=== PATIENT | male | born 1960 | race Caucasian/White ===

== ENCOUNTER 2019-10-05 05:37 | Inpatient (IN) ==
[2019-10-05] MEDS ORDERED: NS 1,000 ML IV ONE ×2 (05:54→07:50)
[2019-10-05] MEDS ORDERED: NARCAN IV ONE ×2 (05:54→07:18)
[2019-10-05 06:04] LABS: BASO# 0.08 X1000 (0.0-0.2); BASO% 0.4 % (0.0-0.8); EOS# 0.06 X1000 (0.0-0.7); EOS% 0.3 % (0.0-10.0); HEMATOCRIT 40.3 % (42.0-52.0); HEMOGLOBIN 13.3 g/dL (14.0-18.0); IMM GRAN% 3.1 % (0.0-0.5); LYMPH# 2.91 X1000 (1.2-3.4); LYMPH% 13.1 % (20.5-51.1); MCH 32.7 PG (27-31); MPV 10.1 FL (7.4-10.4); NEUT# 16.52 X1000 (1.4-6.5); NEUT% 74.1 % (42.2-75.2); PLT 198 X1000 (130-400); RBC 4.07 XMIL (4.7-6.1); RDW 13.3 % (11.5-14.5); WBC 22.27 X1000 (4.8-10.8)
--- NOTE | 2019-10-05 06:15 | PROVIDER DOCUMENTATION ---
HPI-General Adult - General Chief Complaint: Altered Mental Status Stated Complaint: unresponsive Time Seen by Provider: 10/05/19 05:44 Source: patient, EMS Allergies/Adverse Reactions: Patient Allergies Allergy/AdvReac Type Severity Reaction Status Date / Time codeine [Codeine] Allergy Intermediate RASH Verified 09/16/18 17:48 Penicillins Allergy Intermediate RASH Verified 09/16/18 17:48 ketorolac tromethamine * Allergy ABDOMINAL Verified 09/16/18 17:48 [From Toradol] PAIN meloxicam [From Mobic] Allergy NAUSEA/VOMI Verified 09/16/18 17:48 TING Home Medications: Home Medication List Medication Instructions Recorded Confirmed Last Taken Type Albuterol [Albuterol Neb] 2.5 mg INH Q4H PRN PRN 12/11/14 09/27/15 09/26/15 History Albuterol Sulfate [Proair Hfa] 8.5 gm IH PRN PRN 04/06/15 09/27/15 09/26/15 History Gabapentin 300 mg PO TID 04/06/15 09/27/15 09/26/15 History Ipratropium/Albuterol Sulfate 4 gm IH PRN PRN 04/06/15 09/27/15 09/26/15 History [Combivent Respimat 20-100 Mcg] Prednisone 10 mg PO DAILY 04/06/15 09/27/15 09/26/15 History Amitriptyline [Elavil] 10 mg PO HS 09/27/15 09/27/15 09/25/15 History Cefprozil [Cefzil] 500 mg PO BID 09/27/15 09/27/15 09/26/15 History D-Methorphan/P-Epd/Bpm [Bromfed Dm 2 tsp PO Q4H PRN PRN 09/27/15 09/27/15 09/26/15 History Liquid] Diazepam [Valium] 10 mg PO TID 09/27/15 09/27/15 09/26/15 History Hydrocodone/Acetaminophen [[place] 10 mg PO 4XDAY PRN PRN 09/27/15 09/27/15 09/26/15 History 10-325 Tablet] Azithromycin [Zithromax Z-Tom] 250 mg PO DIRECTED #1 pkg 09/16/18 Unknown Rx Promethazine/Dextromethorphan 1 tsp PO Q6H PRN PRN #1 syrup 09/16/18 Unknown Rx [Promethazine-Dm Syrup] - History of Present Illness -Gen Adult Nature of Presenting Problems: Pt presents s/p accidental overdose, pt takes pain medication at home regularly, pt found at home by family unresponsive, upon EMS arrival pt had low O2 sat that responded to NRB, pt is not speaking or answering questions at this time, arousable to pain, not opening eyes, lying in bed in no acute distress. Location of Pain/Injury: reports: none Pain Radiation: reports: no radiation Quality of Pain: reports: none Onset/Duration: reports: 1-3 hours ago Timing: reports: still present Context/Activities at Onset: reports: none Modifying Factors: improves with: nothing Associated Symptoms: reports: denies symptoms Similar Symptoms Previously?: No Recently seen or treated by another doctor?: No Review of Systems - Adult - REVIEW OF SYSTEMS - ADULT ROS:: unobtainable per condition Constitutional: reports: no symptoms reported Past History - Adult - PAST MEDICAL HISTORY-ADULT Review of Records: reports: Old Records Reviewed, Nursing Assessment Review, Medications Reviewed, Social history reviewed & non-contributory. Major Childhood Illnesses: reports: denies history Cardiovascular: reports: CHF Respiratory: reports: asthma, COPD Gastrointestinal: reports: hepatitis (Hep C) Genitourinary: reports: denies history Musculoskeletal: reports: chronic pain Neurological: reports: denies history, Seizures/Epilepsy (as a child) Psychiatric: reports: anxiety Endocrine/Immune: reports: denies history Other Conditions: reports: denies history - PRIOR SURGERIES/PROCEDURES Surgical/Procedure History: reports: cholecystectomy, other (Cyst on the ariadna lbone ) - IMMUNIZATION STATUS Childhood Immunizations: See Nurse Assessment Flu Vaccine: See Nurse Assessment Physical Exam-General - PHYSICAL EXAM-ADULT Initial Vital Signs Reviewed: Yes - CONSTITUTIONAL General Appearance: appears well - EYES Eyes: PERRL/EOMI - HEAD, EARS, NOSE, MOUTH & THROAT HENMT: normocephalic/atraumatic - NECK Neck: normal inspection - RESPIRATORY Respiratory: lungs clear, no respiratory distress, no accessory muscle use - CARDIOVASCULAR Cardiovascular: regular rate, rhythm - GASTROINTESTINAL (ABDOMEN) Abdominal Exam: normal bowel sounds, non tender, soft - LYMPHATIC Lymphatic: no adenopathy - MUSCULOSKELETAL Back Exam: normal inspection Extremity: normal range of motion - SKIN Integumentary: normal color - NEUROLOGIC Neurologic: grossly normal - PSYCHIATRIC Psych/Mental Status: normal mood/affect Progress - PLAN OF CARE/RESULTS Progress/Plan/Lab Results: Vital Signs - 8 hr 10/05/19 06:00 Pulse Rate 100 H Respiratory Rate 12 Blood Pressure 121/82 O2 Sat by Pulse Oximetry 97 Laboratory Results - last 24 hr 10/05/19 05:50 WBC 22.27 H RBC 4.07 L Hgb 13.3 L Hct 40.3 L MCV 99.0 MCH 32.7 H MCHC 33.0 RDW Std Deviation 13.3 Plt Count 198 MPV 10.1 Immature Gran % (Auto) 3.1 H Neut % (Auto) 74.1 Lymph % (Auto) 13.1 L Pettis % (Auto) 9.0 Eos % (Auto) 0.3 Baso % (Auto) 0.4 Immature Gran # (Auto) 0.70 H Neut # (Auto) 16.52 H Lymph # (Auto) 2.91 Pettis # (Auto) 2.00 H Eos # (Auto) 0.06 Baso # (Auto) 0.08 Segmented Neutrophils Not Reportable Orders Category Date Time Status Nursing- Obtain EKG ONCE Care 10/05/19 05:54 Active CHEST-1 VIEW [RAD] Stat Exams 10/05/19 05:54 Ordered CBC WITH ELECTRONIC DIFF [HEME] Stat Lab 10/05/19 05:50 Completed COMPREHENSIVE METABOLIC PANEL [CHEM] Stat Lab 10/05/19 05:57 Ordered TROPONIN T Stat Lab 10/05/19 05:57 Ordered URINE DRUG SCREEN Stat Lab 10/05/19 05:54 Uncollected 0.9% Sodium Chloride Inj [Ns] 1,000 ml Med 10/05/19 05:54 Active IV 999 mls/hr Naloxone [Narcan] Med 10/05/19 05:54 Discontinued 2 mg IV NOW ONE EKG [EKG] Stat Ther 10/05/19 05:54 Ordered Patient signed out to me from Dr Valladares pending labs and reeval. patient again with AMS and was difficult to arouse with sternal rub. Given another 2mg of Narcan but no change. WBC showing 22k, K 5.4 and tachycardia. Will start sepsis protocol and given Vanc and Zosyn. CK came back to 16k. Cr elevated to 1.9. Patient in rhabdo. No source for sepsis. Blood cultures pending. CT Head was negative. Patient started to return to baseline mental status and was A&Ox3. Spoke to VITALIY Dawn general education instructor who accepted patient for admission to Dr Garcia. Further orders to be placed by their team. Result Diagrams: 10/05/19 05:50 10/05/19 05:57 - XRAY 1 XRAY Study: Chest (EXAM: CHEST-1 VIEW INDICATION: ams TECHNIQUE: One view COMPARISON: 09/16/2018 FINDINGS: The lungs are grossly clear. There is no discrete pleural fluid collection or pneumothorax. The cardiomediastinal silhouette and central vasculature are grossly unremarkable. IMPRESSION: No evidence of acute pathology by plain radiograph. Electronically signed by Ghassan Mars 10/05/2019 7:26 AM) - CT/MRI 1 CT Study: Head (EXAM: CT HEAD W/O CONTRAST INDICATION: AMS TECHNIQUE: This exam was performed using automated exposure control, adjustment of mA or kV according to patient size, and/or use of iterative reconstruction technique. COMPARISON: 09/26/2015 FINDINGS: There is no definite acute infarct given the limited sensitivity of CT versus MRI. There is no discrete intracranial mass, mass effect, or intracranial hemorrhage. The surrounding soft tissues and bony structures are essentially unremarkable. IMPRESSION: No evidence of acute intracranial pathology. Electronically signed by Ghassan Mars 10/05/2019 9:35 AM) Departure - Departure Date of Disposition Decision: 10/05/19 Time of Disposition Decision: 09:41 DIAGNOSIS: Altered mental status, Rhabdomyolysis, SCARLET (acute kidney injury), Hyperkalemia, Sepsis Disposition: ADMITTED INPATIENT 09 Certified Medical Emergency: Emergent Condition: Stable Referrals and Follow-Ups: Donny Malloy MD [Primary Care Provider] - - Critical Care Note This patient required my direct & personal management of CC.: Yes Total Time (mins): 35 Critical Care Statement: This patient required my direct personal management to treat or rule out processes, the absence of which, could potentiallly result in sudden, clinically significant life or limb threatening deterioration. Attestation - Physician/ JITENDRA Attestation Patient care was provided by Advanced Practice Provider:: No The physician spent face to face time with patient:: Yes Advanced Practice Provider documentation review:: Supervising physician onsite and consulted in the evaluation and care of this patient. The physician did have a face to face encounter with the patient.
[2019-10-05 06:23] LABS: AGAP 11; ALBUMIN 4.1 g/dL (3.5-5.0); ALKALINE PHOSPHATASE 58 U/L (32-122); BUN 23 mg/dL (8-22); CALCIUM 8.7 mg/dL (8.8-10.2); CHLORIDE 99 mmol/L (98-107); COSMO 281; CREATININE 1.9 mg/dL (0.7-1.2); GLUCOSE 99 mg/dL (70-104); GOT 56 U/L (10-34); GPT 23 U/L (10-44); POTASSIUM 5.4 mmol/L (3.5-5.1); SODIUM 139 mmol/L (136-145); TCO2 29 mmol/L (25-35); TOTAL BILIRUBIN 0.19 mg/dL (0.20-1.00); TOTAL PROTEIN 6.2 g/dL (6.3-8.3)
--- NOTE | 2019-10-05 07:28 | Diag Imaging Result Doc PS360 ---
EXAM: CHEST-1 VIEW INDICATION: ams TECHNIQUE: One view COMPARISON: 09/16/2018 FINDINGS: The lungs are grossly clear. There is no discrete pleural fluid collection or pneumothorax. The cardiomediastinal silhouette and central vasculature are grossly unremarkable. IMPRESSION: No evidence of acute pathology by plain radiograph. Electronically signed by Ghassan Mars 10/05/2019 7:26 AM
--- NOTE | 2019-10-05 07:48 | EKG Report ---
Test Performed on : 10/05/2019 06:06:32 AM Test Reason : AMS Blood Pressure : / mmHG Vent. Rate : 102 BPM Atrial Rate : 102 BPM P-R Int : 128 ms QRS Dur : 080 ms QT Int : 340 ms P-R-T Axes : 078 086 072 degrees QTc Int : 443 ms Sinus tachycardia. Otherwise normal ECG When compared with ECG of 19-FEB-2018 08:50, No significant change was found Unconfirmed Result
[2019-10-05] MEDS ORDERED: VANCOMYCIN 1 GM/NS 1 GM/250 ML IVPB IV ONE (07:49)
[2019-10-05] MEDS ORDERED: ZOSYN 3.375 GM in NS 50 ML IV ONE (07:49)
[2019-10-05] MEDS ORDERED: NS 500 ML IV ONE (07:51)
[2019-10-05 09:32] LABS: URINE SOURCE CLEAN CATCH
[2019-10-05 09:35] LABS: BILIRUBIN URINE NEGATIVE (NEGATIVE); BLOOD URINE LARGE (NEGATIVE); COLOR ORANGE; GLUCOSE URINE NEGATIVE (NEGATIVE); KETONE URINE NEGATIVE (NEGATIVE); LEUKOCYTES URINE NEGATIVE (NEGATIVE); NITRITE URINE NEGATIVE (NEGATIVE); PROTEIN URINE 100 mg/dL (NEGATIVE); SP GRAVITY URINE 1.013; TURBIDITY URINE CLEAR (CLEAR); UROBILINOGEN URINE NORMAL (NORMAL)
[2019-10-05 09:38] LABS: UR EPITHELIAL CELLS <10 /HPF (<10); URINE BACTERIA NEGATIVE /HPF; URINE RBC <10 /HPF (<10); URINE WBC <10 /HPF (<10)
--- NOTE | 2019-10-05 09:38 | Diag Imaging Result Doc PS360 ---
EXAM: CT HEAD W/O CONTRAST INDICATION: AMS TECHNIQUE: This exam was performed using automated exposure control, adjustment of mA or kV according to patient size, and/or use of iterative reconstruction technique. COMPARISON: 09/26/2015 FINDINGS: There is no definite acute infarct given the limited sensitivity of CT versus MRI. There is no discrete intracranial mass, mass effect, or intracranial hemorrhage. The surrounding soft tissues and bony structures are essentially unremarkable. IMPRESSION: No evidence of acute intracranial pathology. Electronically signed by Ghassan Mars 10/05/2019 9:35 AM
[2019-10-05 09:54] LABS: CK INDEX 1.5 (0.0-2.5); CK-MB 250.8 ng/mL (0.0-5.0)
[2019-10-05 10:00] LABS: URINE SMALL ROUND CELLS TRANS PRESENT
[2019-10-05 10:11] LABS: INR 2.93; PROTIME 31.4 Seconds (11.0-16.0)
[2019-10-05 10:12] LABS: PTT 33.6 Seconds (22.3-41.8)
[2019-10-05 10:15] LABS: UR AMPHETAMINES QUAL NONE DETECTED (NONE DETECT); UR BARBITUATES QUAL NONE DETECTED (NONE DETECT); UR BENZODIAZEPIN QUAL NONE DETECTED (NONE DETECT); UR CANNABINOIDS QUAL NONE DETECTED (NONE DETECT); UR COCAINE QUAL NONE DETECTED (NONE DETECT); UR METHADONE QUAL NONE DETECTED (NONE DETECT); UR OPIATES QUAL NONE DETECTED (NONE DETECT); UR OXYCODONE QUAL PRESUMPTIVE POSITIVE (NONE DETECT); UR PCP QUAL NONE DETECTED (NONE DETECT)
[2019-10-05] MEDS ORDERED: LOVENOX SUBQ SCH (11:46)
[2019-10-05] MEDS ORDERED: ZOFRAN IV PRN (11:46)
[2019-10-05] MEDS ORDERED: NS 1,000 ML IV SCH (11:46)
[2019-10-05] MEDS ORDERED: VANCOMYCIN IV PER PHARMACY MISC SCH (11:46)
[2019-10-05 11:47] LABS: ALLEN TEST YES; BE -1.3 mmoll (-3.0-3.0); BLOOD TYPE ARTERIAL; HCO3-(ACT) 23.8 mmoll (20.0-26.0); METHB 1.1 % (0.0-1.5); O2(CT) 16.3 mL/dL (15.0-23.0); O2HB 92.6 % (95.0-99.0); PO2(98.6) 72 mmHg (60-100); SAMPLE BLOOD; SAO2 96.9 % (95.0-100.0); THB 12.5 g/dL (11.5-17.4)
[2019-10-05 11:48] LABS: MODALITY CANNULA
[2019-10-05 11:53] LABS: PCO2(98.6) 75 mmHg (35-45); pH(98.6) 7.19 (7.35-7.45)
[2019-10-05] MEDS ORDERED: SODIUM CHLORIDE 0.9% INJ SCH (12:00)
[2019-10-05] MEDS: ZYVOX 600 MG/D5W 600 MG/300 ML IVPB IV SCH (12:30)
[2019-10-05 12:48] LABS: UR CREAT RANDOM 55.3 mg/dL (14-26)
--- NOTE | 2019-10-05 12:49 | HISTORY AND PHYSICAL ---
PRIMARY CARE PHYSICIAN: Dr. Malloy. CHIEF COMPLAINT: Found unresponsive on floor by his parents this morning with a possible drug overdose. When EMS arrived, he had a low O2 saturation. HISTORY OF PRESENTING ILLNESS: This is a 59-year-old male who presents to [facility] via EMS after his parents found him on the floor unresponsive this morning with a low O2 saturation. When he arrived, he was obtunded, was given Narcan, and responded minimally at that time, responded minimally to a sternal rub, received two doses separately of 2 mg of Narcan, responded to deep suctioning, and is now alert and awake and answering questions appropriately, but it has taken him from the time he arrived to the emergency room, which was around 6 a.m. this morning, until about 30 minutes ago for him to wake up, which has put him at about 3 hours in the emergency room. He is now stating that he only took 1 of his [place] 10 this morning for pain, that this was not an intentional attempt to harm himself. His workup did show a white blood cell count of 22.27. His creatine kinase was 16,713, with a CK-MB of 250.80. Plasma lactate was normal at 1.4. CT of the head showed no evidence of acute intracranial pathology. Chest x-ray, 1 view, showed no evidence of acute pathology by plain radiograph. He will now be admitted to the PVC unit for further evaluation and treatment. PAST MEDICAL HISTORY: Anxiety, asthma, COPD, hepatitis C, CHF, epilepsy, and chronic pain. PAST SURGICAL HISTORY: Cholecystectomy. FAMILY HISTORY: Reviewed and noncontributory. SOCIAL HISTORY: Currently lives with his . He is a former smoker. Former drinker, but has been sober for 5 years, and denied any illicit drug use. ALLERGIES: Codeine, penicillin, Ketoralac, and meloxicam. HOME MEDICATIONS: A current list will need to be obtained, reconciled, reviewed, and restarted as appropriate. Will place an order for nursing to update and confirm home medications. IMAGING AND LABORATORY DATA: Laboratory data showed a white blood cell count of 22.27, hemoglobin 13.3, hematocrit 40.3, platelets 198,000. PT and INR of 13.4 and 2.93. Sodium 139, potassium 5.4, chloride 99, CO2 of 29, BUN of 23, creatinine 1.9, glucose 99. Creatine kinase was 16,713, CK-MB of 250.80. Plasma lactate of 1.4. Urinalysis was negative. CT of the head showed no evidence of acute intracranial pathology. Chest x-ray showed no evidence of acute pathology by plain radiograph. This is with a 1-view chest x-ray. EKG showed sinus tachycardia at 102. REVIEW OF SYSTEMS: He denied any fever, chills, blurred vision, dizziness, chest pain, coughing, shortness of breath. Denied any abdominal pain, constipation, diarrhea, burning or hurting with urination. PHYSICAL EXAMINATION: VITAL SIGNS: On arrival, he had a pulse of 100, respirations 12, blood pressure 121/82, saturating 97% on 3 L. GENERAL: This is a 59-year-old male who is lying in the bed and is currently alert and awake and answering questions appropriately. On arrival, he was obtunded, had to be given Narcan twice, sternal rub, and required deep suctioning to stimulate, but currently is alert and awake. HEENT: Normocephalic, atraumatic. Normal ENT inspection. Oropharynx and nares are clear. Eyes: Pupils are equal, round, and reactive to light and accommodation. Extraocular movements are intact. NECK: Normal inspection. Normal range of motion. LUNGS: Clear to auscultation bilaterally with equal lung expansion and chest wall movement. HEART: Regular rate and rhythm. No murmurs, rubs, or gallops. ABDOMEN: Soft, nontender, nondistended. Bowel sounds are present x4 quadrants. MUSCULOSKELETAL: He had 5/5 strength x4 extremities. NEUROLOGICAL: The cranial nerves II through XII appear grossly intact. ASSESSMENT: 1. Possible drug overdose. 2. Unresponsive on arrival, now resolved. 3. Leukocytosis with possible aspiration pneumonia. 4. Acute kidney injury. 5. Rhabdomyolysis. PLAN: He will be admitted to the PVC unit, placed on telemetry, O2 per protocol, placed on Lovenox 40 mg subcutaneously every 24 hours for DVT prophylaxis, normal saline at 150 mL an hour, Zofran 4 mg IV ever 4 hours p.r.n., vancomycin per pharmacy protocol, Zosyn 3.375 grams IV every 6 hours. Recheck CBC, BMP, cardiac profile, and a 2-view chest x-ray in the morning. Will need to update and confirm home medications. Place on healthy heart diet. Further orders after seen by attending. Dictated by ЮЛИЯ De Leon for Janeth Garcia MD cc: ЮЛИЯ De Leon MD Moses Awoniyi, MD I performed a face to face encounter on the patient. I reviewed all labs and imaging on the patient. I agree with the H&P as dictated. [facility]
[2019-10-05] MEDS ORDERED: ZOSYN 3.375 GM in NS 50 ML IV SCH (14:00)
[2019-10-05 15:04] LABS: ACETAMINOPHEN 1.6 ug/mL (10-30); SALICYLATES < 3.00 mg/dL (3-10)
[2019-10-05 15:05] LABS: ALBUMIN 3.7 g/dL (3.5-5.0); CALCIUM 7.6 mg/dL (8.8-10.2); CREATININE 1.6 mg/dL (0.7-1.2); PHOSPHORUS 3.9 mg/dL (2.7-4.5); POTASSIUM 4.7 mmol/L (3.5-5.1)
[2019-10-05] MEDS: AZACTAM 0.5 GM in NS 50 ML IV SCH ×2 (16:04→22:02)
[2019-10-05] MEDS ORDERED: PREDNISONE PO ONE (22:00)
[2019-10-05] MEDS: HEPARIN SUBQ SCH (22:02)
[2019-10-05] MEDS: NS 1,000 ML IV SCH (22:03)
[2019-10-05] MEDS: DUONEB (A & A) INH SCH (23:57)
[2019-10-06] MEDS: DUONEB (A & A) INH SCH ×6 (02:33→23:39)
[2019-10-06 04:43] LABS: ALLEN TEST YES; BE 5.1 mmoll (-3.0-3.0); BLOOD TYPE ARTERIAL; HCO3-(ACT) 28.9 mmoll (20.0-26.0); O2(CT) 16.9 mL/dL (15.0-23.0); O2HB 95.6 % (95.0-99.0); PO2(98.6) 79 mmHg (60-100); SAMPLE BLOOD; SAO2 98.9 % (95.0-100.0); THB 12.5 g/dL (11.5-17.4)
[2019-10-06 04:46] LABS: MODALITY CANNULA; PCO2(98.6) 68 mmHg (35-45)
[2019-10-06] MEDS: AZACTAM 0.5 GM in NS 50 ML IV SCH ×2 (06:30→17:35)
[2019-10-06] MEDS ORDERED: PROTONIX IV SCH (07:00)
--- NOTE | 2019-10-06 08:24 | PULMONOLOGY CONSULTATION ---
DATE: 10/05/2019 REQUESTING CLINICIAN: Dr. Garcia. REASON FOR CONSULTATION: Acute hypercapnic respiratory failure. HISTORY OF PRESENT ILLNESS: Mr. Arce is a 59-year-old white male with severe COPD, ongoing tobacco use, chronic pain syndrome, who was found poorly responsive by family. The patient was lying on the floor and obtunded. He did not respond to Narcan. The patient has chronic pain syndrome, and did take one [place] tablet by his report. He is now awake and alert. He reports he has a CPAP device at home. PAST MEDICAL HISTORY: 1. Severe COPD, on disability. The patient has chronic CO2 retention with episodes of hypercarbia, perhaps hypercapnia dating back to 2012. 2. Chronic pain syndrome. 3. History of seizure disorder. 4. Anxiety disorder. 5. Hepatitis C. 6. History of CHF. 7. Status post cholecystectomy. FAMILY HISTORY: Noncontributory to current presentation. REVIEW OF SYSTEMS: Notable for chronic pain and chronic shortness of breath. He reports he has significant anxiety, and that is why he continues to smoke. SOCIAL HISTORY: Positive for ongoing tobacco use. Prior alcohol use. PHYSICAL EXAMINATION: General: A chronically ill-appearing male who appears much older than his stated age, in no acute distress. Vital Signs: BP 129/90, heart rate 103, respiratory rate 14, oxygen saturation 95% on BiPAP. HEENT: Pupils are equal and reactive. Oropharynx appears clear. Neck: Supple. Chest: Markedly diminished breath sounds bilaterally. Cardiac: Normal S1, normal S2, with distant heart sounds present. Abdomen: Soft. Extremities: Trace edema. IMAGING AND LABORATORY DATA: Arterial blood gas reveals a pH of 7.19, pCO2 of 75, carboxyhemoglobin of 3.30. Head CT reveals no evidence of acute intracranial pathology. Chest x- ray reveals no evidence of acute disease. IMPRESSION: A 59-year-old with: 1. Acute hypoxemic respiratory failure. 2. Acute on chronic hypercapnic respiratory failure. 3. Chronic obstructive pulmonary disease exacerbation. 4. Ongoing nicotine use. RECOMMENDATIONS: 1. Initiate steroids and bronchodilators. 2. Cycle BiPAP at bedtime and p.r.n. 3. Follow up arterial blood gas tomorrow. cc: Yoan Navarrete MD
[2019-10-06 08:28] LABS: BASO# 0.01 X1000 (0.0-0.2); BASO% 0.1 % (0.0-0.8); HEMATOCRIT 39.1 % (42.0-52.0); HEMOGLOBIN 12.1 g/dL (14.0-18.0); IMM GRAN# 0.08 X1000 (0.0-0.04); IMM GRAN% 0.7 % (0.0-0.5); LYMPH# 0.56 X1000 (1.2-3.4); LYMPH% 5.1 % (20.5-51.1); MCH 31.8 PG (27-31); MCHC 30.9 g/dL (33-37); MCV 102.6 FL (81-99); MONO# 0.35 X1000 (0.11-0.59); MONO% 3.2 % (1.7-9.3); MPV 10.6 FL (7.4-10.4); NEUT# 9.91 X1000 (1.4-6.5); NEUT% 90.9 % (42.2-75.2); PLT 129 X1000 (130-400); RBC 3.81 XMIL (4.7-6.1); RDW 13.4 % (11.5-14.5); WBC 10.91 X1000 (4.8-10.8)
[2019-10-06 08:49] LABS: AGAP 10; ALB/GLOB RATIO 2.2; ALBUMIN 3.5 g/dL (3.5-5.0); ALKALINE PHOSPHATASE 62 U/L (32-122); BUN 15 mg/dL (8-22); CALCIUM 7.8 mg/dL (8.8-10.2); CHLORIDE 104 mmol/L (98-107); COSMO 291; CREATININE 1.2 mg/dL (0.7-1.2); ESTIMATED GFR > 60; GLUCOSE 116 mg/dL (70-104); GOT 677 U/L (10-34); GPT 189 U/L (10-44); POTASSIUM 4.5 mmol/L (3.5-5.1); SODIUM 145 mmol/L (136-145); TCO2 31 mmol/L (25-35); TOTAL BILIRUBIN 0.37 mg/dL (0.20-1.00); TOTAL PROTEIN 5.1 g/dL (6.3-8.3)
[2019-10-06 09:03] LABS: BANDS 2 % (0-1); LYMPHS 6 % (21-51); MONO 6 % (1-9); SEGS 84 % (42-75)
--- NOTE | 2019-10-06 09:29 | Diag Imaging Result Doc PS360 ---
CHEST-2 VIEWS - 10/06/2019 INDICATION: Leukocytosis,Poss Drug OD COMPARISON: 10/05/2019 FINDINGS: Stable severe COPD. There is some increasing linear atelectasis or infiltrate in the left lung base. No pneumothorax or pleural effusion. Heart size is top normal. IMPRESSION: Increasing linear atelectasis or infiltrate in the lateral left lung base. Electronically signed by Dakotah Ordonez 10/06/2019 9:27 AM
[2019-10-06] MEDS: HEPARIN SUBQ SCH ×2 (09:38→21:05)
[2019-10-06] MEDS: PREDNISONE PO SCH (09:38)
[2019-10-06 09:49] LABS: CK TOTAL > 20000 U/L (24-204)
[2019-10-06] MEDS: NS 1,000 ML IV SCH (14:16)
[2019-10-06] MEDS: ZYVOX 600 MG/D5W 600 MG/300 ML IVPB IV SCH ×2 (14:16)
[2019-10-06] MEDS ORDERED: TYLENOL PO PRN (16:24)
[2019-10-06] MEDS ORDERED: LIDODERM TOP SCH (16:30)
[2019-10-06] MEDS: CELEBREX PO SCH (18:48)
--- NOTE | 2019-10-06 21:19 | PROGRESS NOTE ---
DATE: 10/06/2019 INTERVAL HISTORY: No acute events overnight. His ABG suggests improvement in his respiratory acidosis with improvement in pCO2. His vitals were largely unremarkable. He does have thrombocytopenia. SUBJECTIVE: Mr. Arce denies any chest pain, shortness of breath. He states he is occasionally coughing, which is not much. He states he is up only occasionally making sputum, which is close to his baseline. I counseled him about smoking cessation. He is complaining of left hip pain. He states at home he is supposed to be taking Percocet. He also states that his doctor had started him on new medication, likely bupropion; however, he was not able to conform. OBJECTIVE: Vitals: Suggest he has been afebrile, temperature of 98.1 degrees, pulse 94, respiratory rate 18, blood pressure 158/88, saturating 99% on 3 L nasal cannula. General: Not in acute distress. HEENT: Oral cavity is moist. Lungs: Air entry bilaterally equal. Mild end- expiratory wheezes. No rhonchi. He has mild inspiratory crackles. Cardiovascular: S1, S2 normal. Regular. No murmur or gallop. Abdomen: Soft, nontender. Extremity: No lower extremity edema. Neurologic: He is alert and oriented x3. Skin: He does have facial erythema. LABORATORY DATA: Suggestive of improvement in leukocytosis. There is anemia. There is also a drop in platelet count. His acidosis is improving. His pCO2 is improving. His kidney function has normalized. One of the 2 blood cultures is positive. The final report is pending. IMAGING: Chest x-ray today morning suggests increasing atelectasis in the left lower lung base. ASSESSMENT AND PLAN: 1. Acute encephalopathy on presentation due to acute hypoxic hypercarbic respiratory failure. His medication has not been reconciled; however, according to previous summary, he takes gabapentin, diazepam, Percocet and probably he was started on bupropion recently. Use of multiple medications on top of his chronic hypercarbia could have contributed to his acute encephalopathy. His head CT was unremarkable. 2. Acute hypoxic hypercarbic respiratory failure due to mild acute chronic obstructive pulmonary disease exacerbation. He does not have any organized consolidation. I will continue him on inhaled bronchodilators, oral steroids and intravenous antibiotics. 3. SCARLET: Due to rhabdomyolysis. Improved after IV fluids. 3. Acute on chronic back pain. I will start him on acetaminophen, lidocaine patch, and celecoxib. 4. Others. I counseled him about having a discussion with his primary care provider. Considering his seizure history, he may not be an ideal candidate for bupropion if he was indeed started on that. He has history of chronic obstructive pulmonary disease, chronic hypoxic hypercarbic respiratory failure needing home oxygen and nighttime CPAP, chronic pain, which are currently stable. He also has hepatitis C. DISPOSITION: I will monitor him for another 24 hours. Considering he is a little wheezy on my examination, we will follow up with ABG, and we will consider discharging him in next 24 hours or so depending on his clinical course. He is in agreement. Plan of care discussed with him. His questions have been answered. cc: Boni Santiago MD MTDD
[2019-10-07] MEDS: AZACTAM 0.5 GM in NS 50 ML IV SCH ×2 (01:01→08:21)
[2019-10-07] MEDS ORDERED: PERCOCET-10 PO ONE (01:59)
[2019-10-07] MEDS: ZYVOX 600 MG/D5W 600 MG/300 ML IVPB IV SCH (02:05)
[2019-10-07] MEDS: DUONEB (A & A) INH SCH ×3 (03:41→11:15)
[2019-10-07 05:07] LABS: ALLEN TEST YES; BE 10.6 mmoll (-3.0-3.0); BLOOD TYPE ARTERIAL; HCO3-(ACT) 33.2 mmoll (20.0-26.0); METHB 1.1 % (0.0-1.5); O2(CT) 6.9 mL/dL (15.0-23.0); O2HB 96.3 % (95.0-99.0); PCO2(98.6) 54 mmHg (35-45); PO2(98.6) 75 mmHg (60-100); SAMPLE BLOOD; SAO2 99.5 % (95.0-100.0); pH(98.6) 7.43 (7.35-7.45)
[2019-10-07 05:13] LABS: MODALITY CANNULA
--- NOTE | 2019-10-07 06:44 | PULMONOLOGY PROGRESS NOTE ---
DATE: 10/06/2019 SUBJECTIVE: The patient is awake, alert, and conversant. He reports his breathing has improved. He is without specific complaints. OBJECTIVE: Vital Signs: The patient has been afebrile for the last 24 hours. Blood pressure 147/66, heart rate 91, respiratory rate 18, oxygen saturation 97% on 3 L per nasal cannula. HEENT: Pupils are equal and reactive. Oropharynx appears clear. Neck: Neck is supple. Chest: Chest reveals markedly diminished breath sounds bilaterally. Cardiac exam: S1, S2. Abdomen: Abdomen is soft and without hepatosplenomegaly. Extremities: Without edema. LABORATORIES/X-RAYS: Chest x-ray reveals linear atelectasis at the left lung base. Sodium 145, potassium 4.5, chloride 104, bicarbonate 31. BUN 15, creatinine 1.2. CPK is greater than 20,000. Arterial blood gas reveals a pH 7.30, pCO2 of 68, PO2 of 79. IMPRESSION: A 59-year-old with: 1. Acute hypoxemic respiratory failure. 2. Acute on chronic hypercapnic respiratory failure. 3. Chronic obstructive pulmonary disease exacerbation. 4. Nicotine addiction/tobacco use. 5. Rhabdomyolysis. PLAN: 1. Continue steroids and bronchodilators. 2. Encourage patient to use BiPAP at bedtime and p.r.n. 3. Encourage smoking cessation. 4. Follow up chest x-ray tomorrow. 5. Recommend IV fluids if CPK remains elevated. cc: Yoan Navarrete MD
[2019-10-07] MEDS ORDERED: PRILOSEC PO SCH (07:00)
[2019-10-07] MEDS ORDERED: PERCOCET-10 PO PRN (08:09)
[2019-10-07 08:13] VITALS: BP 157/84
[2019-10-07] MEDS: CELEBREX PO SCH (08:21)
[2019-10-07] MEDS: PREDNISONE PO SCH (08:21)
[2019-10-07] MEDS: HEPARIN SUBQ SCH (08:22)
[2019-10-07 08:50] LABS: BASO# 0.01 X1000 (0.0-0.2); BASO% 0.1 % (0.0-0.8); EOS# 0.07 X1000 (0.0-0.7); EOS% 0.8 % (0.0-10.0); HEMOGLOBIN 11.7 g/dL (14.0-18.0); IMM GRAN# 0.04 X1000 (0.0-0.04); IMM GRAN% 0.5 % (0.0-0.5); LYMPH# 1.81 X1000 (1.2-3.4); LYMPH% 21.9 % (20.5-51.1); MCH 31.3 PG (27-31); MCHC 31.6 g/dL (33-37); MCV 98.9 FL (81-99); MONO# 0.63 X1000 (0.11-0.59); MONO% 7.6 % (1.7-9.3); MPV 10.4 FL (7.4-10.4); NEUT# 5.71 X1000 (1.4-6.5); NEUT% 69.1 % (42.2-75.2); PLT 125 X1000 (130-400); RBC 3.74 XMIL (4.7-6.1); RDW 12.6 % (11.5-14.5); WBC 8.27 X1000 (4.8-10.8)
--- NOTE | 2019-10-08 08:15 | DISCHARGE SUMMARY ---
ADMISSION DATE: 10/05/2019 DISCHARGE DATE: 10/07/2019 DISCHARGE DISPOSITION: Home with family. DISCHARGE CONDITION: Hemodynamically stable. He is no longer wheezing. He is alert and oriented x3. He is able to come out of bed and go to the bathroom without getting significant shortness of breath. He was counseled about smoking cessation, using his oxygen and CPAP as prescribed, decreasing use of narcotic and other sedative pain medications, and having follow up with regular physician, records management technician, and neurologist. DISCHARGE DIAGNOSES: 1. Acute on chronic hypoxic hypercarbic respiratory failure. 2. Rhabdomyolysis. 3. Acute kidney injury. 4. Acute encephalopathy due to respiratory failure due to acute on chronic respiratory acidosis in the setting of chronic obstructive pulmonary disease, active tobacco abuse, use of sedative medications, including Percocet, pregabalin, Flexeril, imipramine, amitriptyline. 5. Mild acute chronic obstructive pulmonary disease exacerbation. 6. Active tobacco abuse. 7. Acute on chronic back pain. OTHER DIAGNOSES: 1. Chronic tobacco abuse. 2. History of chronic obstructive pulmonary disease. 3. Chronic hypoxic respiratory failure, who is supposed to be on home oxygen. 4. Obstructive sleep apnea, who is supposed to be on continuous positive airway pressure. However, he does not feel well on continuous positive airway pressure and has been noncompliant. 5. Previous history of seizure, last seizure being in 2014, not on any antiseizure medication. 6. History of hepatitis C. 7. History of anxiety. 8. History of chronic back pain. DISCHARGE MEDICATIONS: Unfortunately, his medication list was not properly reconciled since he has been in the hospital for almost 48 hours. From my end, I prescribed him: 1. Levofloxacin 500 mg daily for 3 days. 2. Prednisone 20 mg daily for 3 days. 3. After discussion with the patient, I learned that he was supposed to be on Percocet 10 mg every 8 hours as needed for back pain. 4. Pregabalin. 5. Amitriptyline. 6. Imipramine. 7. Albuterol/ipratropium nebulization. I advised him to have proper medication reconciliation after having discussion with his physician. PHYSICAL EXAMINATION: Vital Signs: At the time of discharge, temperature 97.9 degrees, pulse 80, respiratory rate 17, blood pressure 150/80, saturating 100% on 3 L nasal cannula. General: Not in any acute distress. HEENT: Oral cavity was moist. Lungs: Air entry bilaterally equal. No wheeze, rhonchi, or crackles. Cardiovascular: S1, S2 was normal. No murmur, rub, or gallop. Regular rate and rhythm. Abdomen: Soft, nontender. Extremities: No lower extremity edema. Neurologic: He was alert and oriented x3. SIGNIFICANT LABORATORY DATA DURING HOSPITAL ADMISSION AND DISCHARGE: On presentation, his WBC was 22,000, which improved to 8000 at the time of discharge, hemoglobin is 11.7, platelets of 125,000. On presentation, his pH was 7.19 and pCO2 of 75, which improved to pH of 7.4 and pCO2 of 54 at the time of discharge. On presentation, his PO2 was 72. On presentation, he had creatinine of 1.9, which improved to 1.2 at the time of discharge. His creatine kinase was elevated on presentation to 16,000, which improved to 13,000 at the time of discharge. SIGNIFICANT MICROBIOLOGY: Blood culture, 1 of the 2 was positive for coagulase-negative Staphylococcus, which was thought to be contaminant. SIGNIFICANT IMAGING DURING HOSPITAL ADMISSION: Chest x-ray on admission did not have any evidence of acute pathology. Head CT on admission did not have any evidence of acute intracranial pathology. Chest x-ray 24 hours later had some atelectasis in the left lung base. Electrocardiogram on presentation had sinus tachycardia. CONSULTATION DURING HOSPITAL ADMISSION: Pulmonology, Dr. Navarrete. HOSPITAL COURSE SUMMARY: Mr. Arce is a 59-year-old man who initially presented on 10/05/2019 as he was found unresponsive by his family member. The time he was unresponsive for was not known. When the EMS arrived, he was found to have a low oxygen saturation, and he was obtunded and confused. He was brought to the emergency room, was given Narcan, but he did not respond appropriately to Narcan. However, after deep suctioning, he started waking up. He was, on presentation, found to have leukocytosis, rhabdomyolysis, acute kidney injury, and hypercarbic respiratory failure with pH of 7.19, so the hospitalist team was consulted for further management. The patient was started on intravenous fluids, BiPAP, intravenous antibiotics. With BiPAP and intravenous fluids, his electrolytes and kidney function normalized, and his rhabdomyolysis also improved. With BiPAP, his respiratory acidosis also improved. The patient was listed to be taking Percocet, amitriptyline, imipramine, pregabalin, as needed Flexeril, though the medication reconciliation was not performed during hospital admission, unfortunately. These were the medication he was supposed to be taking as per my interaction with him. It was thought that his hypercarbia was related to sleep apnea and being noncompliant with CPAP, mild COPD exacerbation, active tobacco abuse, and use of multiple medications. With BiPAP, it improved. At the time of discharge, he was advised to have follow up with records management technician and regular physician. He was advised to taper down his pain medications as tolerated under his primary care doctor's guidance, and was discharged on a short course of antibiotics and steroids. The patient also had history of seizure in the past, though he was not on antiseizure medication. According to him, the trigger for his seizure used to be hot environment, and it was unclear if he had any seizure before presentation since it was not witnessed at all, and the patient did not have recall of that, though on my encounter, he was totally alert and oriented, so further workup was not pursued, and his head CT was unremarkable. He was advised to establish care with a neurologist. More than 30 minutes of time was spent in discharging this patient. Plan of care was extensively discussed with the patient and his at bedside. All of their questions were satisfactorily answered. cc: Boni Santiago MD
== END 2019-10-07 12:26 | disposition home or self-care (01) | DRG 189 ==
LOC: SUPCPDRO → ED 05:37 → 2N 12:13 → SUATTDRO 12:13 → 3N 23:09
PROVIDERS: ATTEND Internal Medicine

== ENCOUNTER 2019-11-02 10:46 | Inpatient (IN) ==
[2019-11-02] MEDS ORDERED: NS 1,000 ML IV PRN (10:53)
[2019-11-02 11:26] LABS: BE 5.1 mmoll (-3.0-3.0); BLOOD TYPE ARTERIAL; HCO3-(ACT) 28.6 mmoll (20.0-26.0); METHB 0.9 % (0.0-1.5); O2(CT) 14.1 mL/dL (15.0-23.0); SAMPLE BLOOD; SAO2 90.5 % (95.0-100.0); THB 11.9 g/dL (11.5-17.4)
[2019-11-02 11:30] LABS: PCO2(98.6) 79 mmHg (35-45); pH(98.6) 7.25 (7.35-7.45)
[2019-11-02 11:31] LABS: BASO# 0.01 X1000 (0.0-0.2); BASO% 0.1 % (0.0-0.8); EOS# 0.06 X1000 (0.0-0.7); EOS% 0.7 % (0.0-10.0); HEMATOCRIT 37.7 % (42.0-52.0); HEMOGLOBIN 11.6 g/dL (14.0-18.0); IMM GRAN# 0.04 X1000 (0.0-0.04); IMM GRAN% 0.5 % (0.0-0.5); LYMPH# 1.34 X1000 (1.2-3.4); LYMPH% 15.5 % (20.5-51.1); MCH 30.6 PG (27-31); MCHC 30.8 g/dL (33-37); MCV 99.5 FL (81-99); MONO# 0.64 X1000 (0.11-0.59); MONO% 7.4 % (1.7-9.3); MPV 10.4 FL (7.4-10.4); NEUT# 6.54 X1000 (1.4-6.5); NEUT% 75.8 % (42.2-75.2); PLT 171 X1000 (130-400); RBC 3.79 XMIL (4.7-6.1); RDW 12.7 % (11.5-14.5); WBC 8.63 X1000 (4.8-10.8)
[2019-11-02 11:31] LABS: O2HB 84.3 % (95.0-99.0); PO2(98.6) 48 mmHg (60-100)
[2019-11-02 11:32] LABS: ALLEN TEST YES; MODALITY CANNULA
--- NOTE | 2019-11-02 11:42 | Diag Imaging Result Doc PS360 ---
CHEST-PORTABLE - 11/02/2019 INDICATION: weakness, history of COPD COMPARISON: 10/06/2019 FINDINGS: There is severe COPD. There is some hazy infiltrate in the right lung base suggesting pneumonia. There is also partial obscuration of the right hemidiaphragm. No pneumothorax or pleural effusion. Heart size is normal. IMPRESSION: Severe COPD. Probable right lower lobe pneumonia. Electronically signed by Dakotah Ordonez 11/02/2019 11:39 AM
--- NOTE | 2019-11-02 11:45 | Diag Imaging Result Doc PS360 ---
EXAM: CT HEAD W/O CONTRAST INDICATION: altered mental status TECHNIQUE: This exam was performed using automated exposure control, adjustment of mA or kV according to patient size, and/or use of iterative reconstruction technique. COMPARISON: 10/05/2019 FINDINGS: There is no definite acute infarct given the limited sensitivity of CT versus MRI. There is no discrete intracranial mass, mass effect, or intracranial hemorrhage. The surrounding soft tissues and bony structures are essentially unremarkable. IMPRESSION: No evidence of acute intracranial pathology. Electronically signed by Ghassan Mars 11/02/2019 11:43 AM
[2019-11-02] MEDS ORDERED: ROCEPHIN IV ONE (11:54)
[2019-11-02 12:01] LABS: INR 0.95; PROTIME 13.1 Seconds (11.0-16.0); PTT 30.9 Seconds (22.3-41.8)
[2019-11-02 12:06] LABS: AGAP 8; ALBUMIN 4.5 g/dL (3.5-5.0); ALKALINE PHOSPHATASE 73 U/L (32-122); BUN 13 mg/dL (8-22); CALCIUM 8.9 mg/dL (8.8-10.2); CHLORIDE 92 mmol/L (98-107); COSMO 266; CREATININE 1.2 mg/dL (0.7-1.2); ESTIMATED GFR > 60; GLUCOSE 91 mg/dL (70-104); GOT 25 U/L (10-34); GPT 17 U/L (10-44); POTASSIUM 4.5 mmol/L (3.5-5.1); SODIUM 133 mmol/L (136-145); TCO2 33 mmol/L (25-35); TOTAL PROTEIN 6.4 g/dL (6.3-8.3)
[2019-11-02] MEDS ORDERED: NS 50 ML ONE (12:11)
[2019-11-02 13:34] LABS: URINE SOURCE CLEAN CATCH
--- NOTE | 2019-11-02 13:35 | EKG Report ---
Test Performed on : 11/02/2019 11:19:21 AM Test Reason : weakness Blood Pressure : / mmHG Vent. Rate : 091 BPM Atrial Rate : 091 BPM P-R Int : 172 ms QRS Dur : 080 ms QT Int : 360 ms P-R-T Axes : 076 088 066 degrees QTc Int : 442 ms Normal sinus rhythm. Possible Left atrial enlargement Borderline ECG When compared with ECG of 05-OCT-2019 06:06, (Unconfirmed) No significant change was found Unconfirmed Result
[2019-11-02 13:38] LABS: BILIRUBIN URINE NEGATIVE (NEGATIVE); BLOOD URINE NEGATIVE (NEGATIVE); COLOR YELLOW; GLUCOSE URINE NEGATIVE (NEGATIVE); KETONE URINE NEGATIVE (NEGATIVE); LEUKOCYTES URINE NEGATIVE (NEGATIVE); NITRITE URINE NEGATIVE (NEGATIVE); PROTEIN URINE NEGATIVE (NEGATIVE); SP GRAVITY URINE 1.011; TURBIDITY URINE CLEAR (CLEAR); UROBILINOGEN URINE NORMAL (NORMAL)
[2019-11-02 13:39] LABS: UR EPITHELIAL CELLS <10 /HPF (<10); URINE BACTERIA NEGATIVE /HPF; URINE RBC <10 /HPF (<10); URINE WBC <10 /HPF (<10)
[2019-11-02 13:48] LABS: UR AMPHETAMINES QUAL NONE DETECTED (NONE DETECT); UR BARBITUATES QUAL NONE DETECTED (NONE DETECT); UR BENZODIAZEPIN QUAL NONE DETECTED (NONE DETECT); UR CANNABINOIDS QUAL NONE DETECTED (NONE DETECT); UR COCAINE QUAL NONE DETECTED (NONE DETECT); UR METHADONE QUAL NONE DETECTED (NONE DETECT); UR METHAMPHETAMINE QUAL NONE DETECTED (NONE DETECT); UR OPIATES QUAL PRESUMPTIVE POSITIVE (NONE DETECT); UR OXYCODONE QUAL PRESUMPTIVE POSITIVE (NONE DETECT); UR PCP QUAL NONE DETECTED (NONE DETECT); UR PROPOXYPHENE QUAL NONE DETECTED (NONE DETECT); UR TCA QUAL PRESUMPTIVE POSITIVE (NONE DETECT)
[2019-11-02] MEDS ORDERED: ZOFRAN IV PRN (13:55)
[2019-11-02] MEDS ORDERED: TYLENOL PO PRN (13:55)
[2019-11-02] MEDS ORDERED: NS 1,000 ML IV ONE (13:57)
[2019-11-02 14:13] LABS: BLOOD TYPE ARTERIAL; SAMPLE BLOOD
[2019-11-02] MEDS ORDERED: NARCAN IV ONE (14:17)
[2019-11-02] MEDS ORDERED: VERSED IV ONE (14:35)
--- NOTE | 2019-11-02 14:44 | HISTORY AND PHYSICAL ---
PRIMARY CARE PROVIDER: Dr. Kehinde Hidalgo. CHIEF COMPLAINT: Dizziness and lightheadedness. HISTORY OF PRESENT ILLNESS: Mr. Stephane Arce is a 59-year-old male with a medical history of frequent admissions for COPD exacerbation and oversedation. He is found to have CO2 retention with some moderate respiratory acidosis, currently on BiPAP. No signs of pneumonia at this time. Mildly low blood pressure responded well to IV fluid hydration. Want to transfer to [facility] with a consult for Pulmonary while he is on BiPAP and monitor him for oversedation. Currently, he will wake up with verbal and tactile stimulation. Will carry on a conversation. PAST MEDICAL HISTORY: 1. Anxiety. 2. Asthma. 3. COPD. 4. Hepatitis C. 5. Congestive heart failure. 6. Epilepsy. 7. Chronic pain. SURGICAL HISTORY: Cholecystectomy. SOCIAL HISTORY: History of tobacco abuse with current active tobacco abuse. Also, has abuse of opioids, benzodiazepines, and tricyclics. He is on several medications at home. Discussed smoking cessation with him. Denied alcohol or illicit drug use. Lives at home. FAMILY HISTORY: Denies. REVIEW OF SYSTEMS: Fourteen point review of systems are complete and all were negative except for those mentioned above HPI. Patient complains of back pain and is requesting something for his back pain at this time. ALLERGIES: Codeine, penicillin, Toradol, and Mobic. HOME MEDICATIONS: Have not been reconciled. PHYSICAL EXAM: VITAL SIGNS: Temperature not recorded, heart rate 90, respiratory rate 19, blood pressure 101/64, O2 saturation 94% on BiPAP. GENERAL: Mr. Stephane Arce is a 59-year-old male. He is in no acute distress. He is able answer questions appropriately, but he is drowsy. HEENT: Atraumatic, normocephalic. Pupils equal, round, reactive to light. Extraocular movements intact. Mucous membranes are dry. NECK: Trachea midline. CARDIOVASCULAR: S1, S2. Regular rate and rhythm. No rubs, gallops, murmurs. No lower extremity edema. Negative for JVD or carotid bruits. PULMONARY: Mild expiratory wheezes noted. No accessory muscle use or work of breathing noted. He is currently tolerating a BiPAP at this time. GASTROINTESTINAL: Soft, nontender, nondistended. Positive bowel sounds x4. EXTREMITIES: Moves all extremities equally. Decreased range of motion. Decreased strength. NEUROLOGIC: He is drowsy but oriented to name, place and year. SKIN: Warm, dry, intact. LABORATORY DATA: White blood cells 8000, hemoglobin 11, hematocrit 37, platelet count 171,000. INR 0.95, PTT is 30.9. ABGs on 4 L was pH 7.25, pCO2 79, pO2 48, bicarb 28, base excess 5.1, saturation 84%, lactate 0.6. Sodium 133, potassium 4.5, BUN 13, creatinine is 1.2, glucose 91, calcium 8.9, bilirubin 0.30, AST 25, ALT 17. CK 142. Troponin 27. Albumin is 4.5, lactate 1.0. Urinalysis negative. Urine drug screen positive for opiates, oxycodone and tricyclics. IMAGING: Head CT negative for acute findings. Chest x-ray with severe COPD and probable right lower lobe pneumonia. EKG normal sinus rhythm, rate 91, QTc is 442. ASSESSMENT/PLAN: 1. Chronic obstructive pulmonary disease exacerbation. Intravenous steroids, nebulizers, antibiotic coverage, and intravenous fluids. 2. Probable right lower lobe pneumonia. Denies coughing up any colored phlegm. We will continue him on antibiotic therapy. 3. Acute hypoxemic hypercarbic respiratory failure, on BiPAP. Pulmonary consulted. 4. Toxic encephalopathy secondary to prescription medication intake. He is not as lethargic as when he first presented and hopefully will start to improve. He is actually oriented and drowsy at this time. 5. Anxiety disorder. He takes home medications, that has been ordered to be reconciled. 6. History of hepatitis C. 7. History of epilepsy. 8. History of chronic pain, currently requesting something for back pain. 9. Reported congestive heart failure. However, his echocardiogram from 2016 shows a normal ejection fraction. No obvious diastolic dysfunction either. 10. Deep venous thrombosis prophylaxis. Lovenox. 11. Tobacco abuse cessation discussed for at least three minutes. We are going to transfer him to [facility] at [facility]. Dictated by ЮЛИЯ Baxter for Galileo Guadarrama MD cc: ЮЛИЯ Baxter MD
[2019-11-02] MEDS: SOLU-MEDROL IV SCH ×2 (15:20→21:19)
[2019-11-02] MEDS: LOVENOX SUBQ SCH (15:22)
--- NOTE | 2019-11-02 15:53 | PROVIDER DOCUMENTATION ---
This chart was entered by Paulette Hunt Scribe, acting as scribe for Johana Maier MD. HPI-Syncope/Dizziness - General Stated Complaint: SYNCOPE Time Seen by Provider: 11/02/19 10:49 Source: patient, EMS Allergies/Adverse Reactions: Patient Allergies Allergy/AdvReac Type Severity Reaction Status Date / Time codeine [Codeine] Allergy Intermediate RASH Verified 09/16/18 17:48 Penicillins Allergy Intermediate RASH Verified 09/16/18 17:48 ketorolac tromethamine * Allergy ABDOMINAL Verified 09/16/18 17:48 [From Toradol] PAIN meloxicam [From Mobic] Allergy NAUSEA/VOMI Verified 09/16/18 17:48 TING Home Medications: Home Medication List Medication Instructions Recorded Confirmed Last Taken Type Albuterol [Albuterol Neb] 2.5 mg INH Q4H PRN PRN 12/11/14 09/27/15 09/26/15 History Albuterol Sulfate [Proair Hfa] 8.5 gm IH PRN PRN 04/06/15 09/27/15 09/26/15 History Gabapentin 300 mg PO TID 04/06/15 09/27/15 09/26/15 History Ipratropium/Albuterol Sulfate 4 gm IH PRN PRN 04/06/15 09/27/15 09/26/15 History [Combivent Respimat 20-100 Mcg] Prednisone 10 mg PO DAILY 04/06/15 09/27/15 09/26/15 History Amitriptyline [Elavil] 10 mg PO HS 09/27/15 09/27/15 09/25/15 History D-Methorphan/P-Epd/Bpm [Bromfed Dm 2 tsp PO Q4H PRN PRN 09/27/15 09/27/15 09/26/15 History Liquid] Hydrocodone/Acetaminophen [King 10 mg PO 4XDAY PRN PRN 09/27/15 09/27/15 09/26/15 History 10-325 Tablet] Levofloxacin [Levaquin] 500 mg PO DAILY #3 tab 10/07/19 Unknown Rx Prednisone 20 mg PO DAILY #3 tab 10/07/19 Unknown Rx - History of Present Illness-Syncope/Dizzy Nature of Presenting Problem: Patient is a 59 year old male who presents to the ED via EMS after having a near syncopal episode. States being lightheaded and weak prior to near syncopal episode. Patient denies LOC. Onset/Duration: reports: this morning Timing: reports: improving Position/Activity at time of episode: reports: standing Symptoms prior to episode: reports: lightheaded, other (weakness) Context: reports: almost passed out Loss of Consciousness: no loss of consciousness Location of injury. (If syncope resulted in an injury.): reports: none Review of Systems - Adult - REVIEW OF SYSTEMS - ADULT Constitutional: reports: no symptoms reported Eyes: reports: no symptoms reported Ears, Nose, Mouth & Throat: reports: no symptoms reported Cardiovascular: reports: no symptoms reported Respiratory: reports: no symptoms reported Gastrointestinal: reports: no symptoms reported Genitourinary: reports: no symptoms reported Musculoskeletal: reports: see HPI, muscle weakness. denies: back pain, neck pain Integumentary: reports: no symptoms reported Neurological: reports: see HPI, syncope (near), other (lightheadedness) Psychiatric: reports: no symptoms reported Endocrine: reports: no symptoms reported Hematologic/Lymphatic: reports: no symptoms reported Allergic/Immunologic: reports: no symptoms reported All Other Systems: Reviewed and Negative Past History - Adult - PAST MEDICAL HISTORY-ADULT Review of Records: reports: Old Records Reviewed, Nursing Assessment Review, Medications Reviewed, Social history reviewed & non-contributory. Major Childhood Illnesses: reports: denies history Cardiovascular: reports: CHF, HTN Respiratory: reports: asthma, COPD Gastrointestinal: reports: hepatitis (Hep C) Obstetrical/Gynecological: reports: denies history Genitourinary: reports: kidney disease Musculoskeletal: reports: chronic pain Neurological: reports: Seizures/Epilepsy Psychiatric: reports: anxiety Endocrine/Immune: reports: denies history Other Conditions: reports: denies history - PRIOR SURGERIES/PROCEDURES Surgical/Procedure History: reports: cholecystectomy, other (Cyst on the tailbone ) - IMMUNIZATION STATUS Childhood Immunizations: See Nurse Assessment Flu Vaccine: See Nurse Assessment - FAMILY HISTORY Family History: reviewed, not pertinent - SOCIAL HISTORY Smoking: cigarettes (former) Alcohol Use Frequency: sober (former use) Physical Exam-General - PHYSICAL EXAM-ADULT Initial Vital Signs Reviewed: Yes - CONSTITUTIONAL General Appearance: alert, no apparent distress. negative: lethargic - EYES Eyes: pink conjunctivae. negative: anisocoria - HEAD, EARS, NOSE, MOUTH & THROAT HENMT: normocephalic/atraumatic, normal ENT inspection - NECK Neck: non-tender. negative: C-spine tenderness - RESPIRATORY Respiratory: chest non-tender, rhonchi, prolonged expiration. negative: rales, wheezing, increased rate - CARDIOVASCULAR Cardiovascular: regular rate, rhythm, no gallop, no murmur. negative: tachycardia - GASTROINTESTINAL (ABDOMEN) Abdominal Exam: normal bowel sounds, non tender, soft. negative: rigid - LYMPHATIC Lymphatic: no adenopathy - MUSCULOSKELETAL Back Exam: no CVA tenderness, no vertebral tenderness Extremity: non-tender, normal inspection. negative: deformity - SKIN Integumentary: normal color, normal turgor, warm/dry. negative: diaphoresis, pallor - NEUROLOGIC Neurologic: grossly normal. negative: aphasia, facial droop - PSYCHIATRIC Psych/Mental Status: normal mood/affect, oriented x 3, disheveled. negative: anxious Progress - PLAN OF CARE/RESULTS Progress/Plan/Lab Results: Vital Signs - 8 hr 11/02/19 10:45 11/02/19 11:55 11/02/19 12:16 Pulse Rate 95 H 88 90 Respiratory Rate 18 24 19 Blood Pressure 128/67 97/64 101/64 O2 Sat by Pulse Oximetry 97 88 L 94 L 11/02/19 13:57 Pulse Rate 84 Respiratory Rate 16 Blood Pressure 107/72 O2 Sat by Pulse Oximetry 98 Laboratory Results - last 24 hr 11/02/19 11/02/19 11/02/19 11:13 11:15 11:15 WBC 8.63 RBC 3.79 L Hgb 11.6 L Hct 37.7 L MCV 99.5 H MCH 30.6 MCHC 30.8 L RDW Std Deviation 12.7 Plt Count 171 MPV 10.4 Immature Gran % (Auto) 0.5 Neut % (Auto) 75.8 H Lymph % (Auto) 15.5 L Stan[place] % (Auto) 7.4 Eos % (Auto) 0.7 Baso % (Auto) 0.1 Immature Gran # (Auto) 0.04 Neut # (Auto) 6.54 H Lymph # (Auto) 1.34 Stan[place] # (Auto) 0.64 H Eos # (Auto) 0.06 Baso # (Auto) 0.01 PT INR PTT (Actin FS) Specimen Type ARTERIAL Sample Site L RADIAL pH 7.25 L pCO2 79 H* pO2 48 L* HCO3 28.6 H Base Excess 5.1 H Oxyhemoglobin 84.3 L* ABG O2 Sat (Calculated) 14.1 L ABG O2 Saturation 90.5 L ABG Carboxyhemoglobin 5.80 H* ABG Methemoglobin 0.9 Stepan Test YES A-a O2 Difference 110.0 Total Hemoglobin 11.9 Lactate 0.60 Liter Flow 4.0 Blood Gas Modality CANNULA FiO2 % 36.0 Sodium 133 L Potassium 4.5 Chloride 92 L Carbon Dioxide 33 Anion Gap 8 BUN 13 Creatinine 1.2 Estimated GFR/1.73 m2 > 60 BUN/Creatinine Ratio 11 Glucose 91 POC Glucose Calculated Osmolality 266 Calcium 8.9 Total Bilirubin 0.30 AST 25 ALT 17 Alkaline Phosphatase 73 Creatine Kinase Troponin T High Sens Total Protein 6.4 Albumin 4.5 Globulin 2.0 Albumin/Globulin Ratio 2.0 Plasma Lactate Urine Source Urine Color Urine Turbidity Urine pH Ur Specific [place] Urine Protein Ur Glucose (Stick) Ur Ketones (Stick) Urine Blood Urine Nitrite Urine Bilirubin Urobilinogen Dipstick Urine Leukocytes Urine WBC (Auto) Urine RBC (Auto) U Epithel Cells (Auto) Urine Bacteria (Auto) Urine Opiates Screen Ur Oxycodone Screen Urine Methadone Screen U Propoxyphene Qual Ur Barbituates Screen Ur Tricyclics Screen Ur Phencyclidine Scrn Ur Amphetamines Screen U Methamphetamines Scrn U Benzodiazepines Scrn Urine Cocaine Screen U Cannabinoids Screen 11/02/19 11/02/19 11/02/19 11:15 11:15 11:15 WBC RBC Hgb Hct MCV MCH MCHC RDW Std Deviation Plt Count MPV Immature Gran % (Auto) Neut % (Auto) Lymph % (Auto) [place] % (Auto) Eos % (Auto) Baso % (Auto) Immature Gran # (Auto) Neut # (Auto) Lymph # (Auto) [place] # (Auto) Eos # (Auto) Baso # (Auto) PT 13.1 INR 0.95 PTT (Actin FS) 30.9 Specimen Type Sample Site pH pCO2 pO2 HCO3 Base Excess Oxyhemoglobin ABG O2 Sat (Calculated) ABG O2 Saturation ABG Carboxyhemoglobin ABG Methemoglobin Stepan Test A-a O2 Difference Total Hemoglobin Lactate Liter Flow Blood Gas Modality FiO2 % Sodium Potassium Chloride Carbon Dioxide Anion Gap BUN Creatinine Estimated GFR/1.73 m2 BUN/Creatinine Ratio Glucose POC Glucose Calculated Osmolality Calcium Total Bilirubin AST ALT Alkaline Phosphatase Creatine Kinase Troponin T High Sens 35 H* Total Protein Albumin Globulin Albumin/Globulin Ratio Plasma Lactate 1.5 Urine Source Urine Color Urine Turbidity Urine pH Ur Specific [place] Urine Protein Ur Glucose (Stick) Ur Ketones (Stick) Urine Blood Urine Nitrite Urine Bilirubin Urobilinogen Dipstick Urine Leukocytes Urine WBC (Auto) Urine RBC (Auto) U Epithel Cells (Auto) Urine Bacteria (Auto) Urine Opiates Screen Ur Oxycodone Screen Urine Methadone Screen U Propoxyphene Qual Ur Barbituates Screen Ur Tricyclics Screen Ur Phencyclidine Scrn Ur Amphetamines Screen U Methamphetamines Scrn U Benzodiazepines Scrn Urine Cocaine Screen U Cannabinoids Screen 11/02/19 11/02/19 11/02/19 11:25 12:57 12:57 WBC RBC Hgb Hct MCV MCH MCHC RDW Std Deviation Plt Count MPV Immature Gran % (Auto) Neut % (Auto) Lymph % (Auto) [place] % (Auto) Eos % (Auto) Baso % (Auto) Immature Gran # (Auto) Neut # (Auto) Lymph # (Auto) [place] # (Auto) Eos # (Auto) Baso # (Auto) PT INR PTT (Actin FS) Specimen Type Sample Site pH pCO2 pO2 HCO3 Base Excess Oxyhemoglobin ABG O2 Sat (Calculated) ABG O2 Saturation ABG Carboxyhemoglobin ABG Methemoglobin Stepan Test A-a O2 Difference Total Hemoglobin Lactate Liter Flow Blood Gas Modality FiO2 % Sodium Potassium Chloride Carbon Dioxide Anion Gap BUN Creatinine Estimated GFR/1.73 m2 BUN/Creatinine Ratio Glucose POC Glucose 81 D Calculated Osmolality Calcium Total Bilirubin AST ALT Alkaline Phosphatase Creatine Kinase 142 Troponin T High Sens Total Protein Albumin Globulin Albumin/Globulin Ratio Plasma Lactate 1.0 Urine Source Urine Color Urine Turbidity Urine pH Ur Specific [place] Urine Protein Ur Glucose (Stick) Ur Ketones (Stick) Urine Blood Urine Nitrite Urine Bilirubin Urobilinogen Dipstick Urine Leukocytes Urine WBC (Auto) Urine RBC (Auto) U Epithel Cells (Auto) Urine Bacteria (Auto) Urine Opiates Screen Ur Oxycodone Screen Urine Methadone Screen U Propoxyphene Qual Ur Barbituates Screen Ur Tricyclics Screen Ur Phencyclidine Scrn Ur Amphetamines Screen U Methamphetamines Scrn U Benzodiazepines Scrn Urine Cocaine Screen U Cannabinoids Screen 11/02/19 11/02/19 11/02/19 12:57 13:25 13:25 WBC RBC Hgb Hct MCV MCH MCHC RDW Std Deviation Plt Count MPV Immature Gran % (Auto) Neut % (Auto) Lymph % (Auto) [place] % (Auto) Eos % (Auto) Baso % (Auto) Immature Gran # (Auto) Neut # (Auto) Lymph # (Auto) [place] # (Auto) Eos # (Auto) Baso # (Auto) PT INR PTT (Actin FS) Specimen Type Sample Site pH pCO2 pO2 HCO3 Base Excess Oxyhemoglobin ABG O2 Sat (Calculated) ABG O2 Saturation ABG Carboxyhemoglobin ABG Methemoglobin Stepan Test A-a O2 Difference Total Hemoglobin Lactate Liter Flow Blood Gas Modality FiO2 % Sodium Potassium Chloride Carbon Dioxide Anion Gap BUN Creatinine Estimated GFR/1.73 m2 BUN/Creatinine Ratio Glucose POC Glucose Calculated Osmolality Calcium Total Bilirubin AST ALT Alkaline Phosphatase Creatine Kinase Troponin T High Sens 27 H* Total Protein Albumin Globulin Albumin/Globulin Ratio Plasma Lactate Urine Source CLEAN CATCH Urine Color YELLOW Urine Turbidity CLEAR Urine pH 6.0 Ur Specific [place] 1.011 Urine Protein NEGATIVE Ur Glucose (Stick) NEGATIVE Ur Ketones (Stick) NEGATIVE Urine Blood NEGATIVE Urine Nitrite NEGATIVE Urine Bilirubin NEGATIVE Urobilinogen Dipstick NORMAL Urine Leukocytes NEGATIVE Urine WBC (Auto) <10 Urine RBC (Auto) <10 U Epithel Cells (Auto) <10 Urine Bacteria (Auto) NEGATIVE Urine Opiates Screen PRESUMPTIVE POSITIVE A Ur Oxycodone Screen PRESUMPTIVE POSITIVE A Urine Methadone Screen NONE DETECTED U Propoxyphene Qual NONE DETECTED Ur Barbituates Screen NONE DETECTED Ur Tricyclics Screen PRESUMPTIVE POSITIVE A Ur Phencyclidine Scrn NONE DETECTED Ur Amphetamines Screen NONE DETECTED U Methamphetamines Scrn NONE DETECTED U Benzodiazepines Scrn NONE DETECTED Urine Cocaine Screen NONE DETECTED U Cannabinoids Screen NONE DETECTED Orders Category Date Time Status Admit - [facility] Routine AdmDCTranf 11/02/19 13:55 Active Activity - Up with Assistance ORDERED Care 11/02/19 13:55 Active Cardiac Monitoring DIRECTED Care 11/02/19 10:53 Active Cardiac Monitoring DIRECTED Care 11/02/19 11:55 Active Finger Stick Blood Sugar (ED) DIRECTED Care 11/02/19 10:53 Active IV Insertion ORDERED Care 11/02/19 11:55 Completed Intake and Output-Strict ORDERED Care 11/02/19 15:03 Active Notify of + Sepsis Screen NOW Care 01/13/20 11:55 Active Nursing- Assist w/ IS as order ORDERED Care 11/02/19 15:03 Active Saline Loc DIRECTED Care 11/02/19 15:03 Active Saline Loc NOW Care 11/02/19 10:53 Active Turn, Cough and Deep Breathe Q4HR.AWAKE Care 11/02/19 15:03 Active Update & Confirm Home Medicati ROUTINE Care 11/02/19 13:22 Active Vital Signs Order Q 4-HR ASSESS Care 11/02/19 15:03 Active Z-Document. for Tele Applied ORDERED Care 11/02/19 15:03 Active Regular Diet Diet 11/02/19 13:55 Active CHEST-2 VIEWS [RAD] Routine Exams 11/03/19 06:00 Ordered CHEST-PORTABLE [RAD] Stat Exams 11/02/19 10:[address] HEAD W/O CONTRAST [CT] Stat Exams 11/02/19 11:14 Completed ABG [RESP] Routine Lab 11/02/19 11:13 Completed ABG [RESP] Routine Lab 11/02/19 14:02 Received ABG [RESP] Routine Lab 11/03/19 06:00 Uncollected BLOOD CULTURE [BLDCUL] Stat Lab 11/02/19 11:15 Results CBC WITH DIFF [HEME] Q24H Lab 11/03/19 06:00 Ordered CBC WITH DIFF [HEME] Q24H Lab 11/04/19 06:00 Ordered CBC WITH DIFF [HEME] Q24H Lab 11/05/19 06:00 Ordered CBC WITH DIFF [HEME] Q24H Lab 11/06/19 06:00 Ordered CBC WITH DIFF [HEME] Q24H Lab 11/07/19 06:00 Ordered CBC WITH DIFF [HEME] Q24H Lab 11/08/19 06:00 Ordered CBC WITH DIFF [HEME] Q24H Lab 11/09/19 06:00 Ordered CBC WITH ELECTRONIC DIFF [HEME] Stat Lab 11/02/19 11:15 Completed CK PROFILE [SP CHEM] Stat Lab 11/02/19 12:57 Completed COMPREHENSIVE METABOLIC PANEL [CHEM] Q24H Lab 11/03/19 06:00 Ordered COMPREHENSIVE METABOLIC PANEL [CHEM] Q24H Lab 11/04/19 06:00 Ordered COMPREHENSIVE METABOLIC PANEL [CHEM] Q24H Lab 11/05/19 06:00 Ordered COMPREHENSIVE METABOLIC PANEL [CHEM] Q24H Lab 11/06/19 06:00 Ordered COMPREHENSIVE METABOLIC PANEL [CHEM] Q24H Lab 11/07/19 06:00 Ordered COMPREHENSIVE METABOLIC PANEL [CHEM] Q24H Lab 11/08/19 06:00 Ordered COMPREHENSIVE METABOLIC PANEL [CHEM] Q24H Lab 11/09/19 06:00 Ordered COMPREHENSIVE METABOLIC PANEL [CHEM] Stat Lab 11/02/19 11:15 Completed LACTATE, PLASMA [CHEM] Lab 11/02/19 15:00 Uncollected LACTATE, PLASMA [CHEM] Lab 11/02/19 18:00 Uncollected LACTATE, PLASMA [CHEM] Q3H Lab 11/02/19 12:57 Completed LACTATE, PLASMA [CHEM] Stat Lab 11/02/19 11:15 Completed PROTIME WITH INR [COAG] Stat Lab 11/02/19 11:15 Completed PTT [COAG] Stat Lab 11/02/19 11:15 Completed SPUTUM CULTURE WITH GRAM STAIN [RM] Routine Lab 11/02/19 13:55 Uncollected TROPONIN T HIGH SENSITIVITY Stat Lab 11/02/19 11:15 Completed TROPONIN T HIGH SENSITIVITY Stat Lab 11/02/19 12:57 Completed URINALYSIS W/POSS RFLX CULT [URINALYSIS] Stat Lab 11/02/19 13:25 Completed URINE DRUG SCREEN PL Stat Lab 11/02/19 13:25 Completed 0.9% Sodium Chloride Inj [Ns] 1,000 ml Med 11/02/19 13:57 Active IV 125 mls/hr 0.9% Sodium Chloride Inj [Ns] 1,000 ml Med 11/02/19 10:53 Active IV 999 mls/hr 0.9% Sodium Chloride Inj [Ns] 50 ml Med 11/02/19 12:11 Discontinued .ROUTE As directed Acetaminophen [Tylenol] Med 11/02/19 13:55 Active 650 mg PO Q6H PRN PRN Albuterol 2.5MG/Ipratrop 0.5MG [Duoneb (A & A)] Med 11/02/19 15:30 Active 3 ml INH RTQ4H Budesonide [Pulmicort] Med 11/02/19 19:30 Active 0.5 mg INH RTBID CefTRIAXONE [Rocephin] Med 11/02/19 11:54 Discontinued 1 gm IV NOW ONE Enoxaparin [Lovenox] Med 11/02/19 14:00 Active 30 mg SUBQ Q24H Methylprednisolone Sod Succ [Solu-Medrol] Med 11/02/19 14:00 Active 60 mg IV Q8H Ondansetron [Zofran] Med 11/02/19 13:55 Active 4 mg IV Q4H PRN PRN Aerosol Treatments Routine Ot 11/02/19 13:55 Active Incentive Spirometer Q4HR.AWAKE Ot 11/02/19 17:00 Ordered Incentive Spirometer Q4HR.AWAKE Ot 11/02/19 21:00 Ordered Incentive Spirometer Q4HR.AWAKE Ot 11/03/19 01:00 Ordered Incentive Spirometer Q4HR.AWAKE Ot 11/03/19 05:00 Ordered Incentive Spirometer Q4HR.AWAKE Ot 11/03/19 09:00 Ordered Incentive Spirometer Q4HR.AWAKE [facility] 11/03/19 13:00 Ordered Oxygen Device Routine [facility] 11/02/19 13:55 Active Peak Flow BID Ot 11/02/19 21:00 Ordered Peak Flow BID Ot 11/03/19 09:00 Ordered Pulse Oximetry Routine Ot 11/02/19 13:55 Active Telemetry [OM.EQ] Routine Ot 11/02/19 15:03 Active EKG [EKG] Stat Ther 11/02/19 10:53 Draft Transfer/Admit Order [TRANSFER] Routine Transfer 11/02/19 13:47 Completed Result Diagrams: 11/02/19 11:15 11/02/19 11:15 - EKG 1 Time of EKG reading by physician:: 11:19 EKG Read and Signed by:: Johana Maier EKG Interpretation (*Must complete 3 of following elements*): Abnormal Rate: 91 Rhythm: NSR [place]: normal [place] Interval: normal Comments: possible left atrial enlargement - XRAY 1 XRAY Study: Chest Impression: See EMR Report ( CHEST-PORTABLE - 11/02/2019 INDICATION: weakness, history of COPD COMPARISON: 10/06/2019 FINDINGS: There is severe COPD. There is some hazy infiltrate in the right lung base suggesting pneumonia. There is also partial obscuration of the right hemidiaphragm. No pneumothorax or pleural effusion. Heart size is normal. IMPRESSION: Severe COPD. Probable right lower lobe pneumonia. Electronically signed by Dakotah Ordonez 11/02/2019 11:39 AM 11/02/19 1139 Interpreting Physician: Dakotah Ordonez MD Dictated Date/Time: 11/02/19 1138 cc: Johana Maier MD; Kehinde Hidalgo MD) - CT/MRI 1 CT Study: Head Impression: See EMR Report ( EXAM: CT HEAD W/O CONTRAST INDICATION: altered mental status TECHNIQUE: This exam was performed using automated exposure cont rol, adjustment of mA or kV according to patient size, and/or use of iterative reconstruction technique. COMPARISON: 10/05/2019 FINDINGS: There is no definite acute infarct given the limited sensitivity of CT versus MRI. There is no discrete intracranial mass, mass effect, or intracranial hemorrhage. The surrounding soft tissues and bony structures are essentially unremarkable. IMPRESSION: No evidence of acute intracranial pathology. Electronically signed by Ghassan Mars 11/02/2019 11:43 AM 11/02/19 1143 Interpreting Physician: Ghassan Mars MD Dictated Date/Time: 11/02/19 1143 cc: Johana Maier MD; Kehinde Hidalgo MD) - CONSULTS/PCP/HOSPITALIST Notification #1 *Consult/PCP/Hospitalist*: Dr. Guadarrama Time Discussed: 12:31 Reason/Comments: Dr. Maier consulted with Dr. Guadarrama about patient. Consult Disposition: Will see in ED, Admit Departure - Departure Date of Disposition Decision: 11/02/19 Time of Disposition Decision: 12:31 DIAGNOSIS: Respiratory distress Altered mental status Qualifiers: Altered mental status type: delirium Qualified Code(s): R41.0 - Disorientation, unspecified Disposition: ADMITTED INPATIENT 09 Certified Medical Emergency: Emergent Condition: Stable - Critical Care Note This patient required my direct & personal management of CC.: No Attestation - Physician/ JITENDRA Attestation Patient care was provided by Advanced Practice Provider:: No The physician spent face to face time with patient:: Yes Advanced Practice Provider documentation review:: Supervising physician onsite and consulted in the evaluation and care of this patient. The physician did have a face to face encounter with the patient. This chart was documented by the indicated scribe, (Paulette Hunt Scribe) and accurately reflects the services I performed and decisions made by me, Johana Maier MD, as attested by the provider's signature.
[2019-11-02] MEDS ORDERED: ATIVAN IV ONE (16:31)
[2019-11-02] MEDS: DUONEB (A & A) INH SCH ×3 (16:37→23:24)
[2019-11-02] MEDS ORDERED: STERILE WATER INJ. INJ PRN (17:00)
[2019-11-02] MEDS ORDERED: GEODON IM PRN (17:00)
[2019-11-02 17:16] LABS: ALLEN TEST NO; BE 6.2 mmoll (-3.0-3.0); BLOOD TYPE ARTERIAL; HCO3-(ACT) 29.5 mmoll (20.0-26.0); METHB 1.1 % (0.0-1.5); O2(CT) 16.1 mL/dL (15.0-23.0); PO2(98.6) 51 mmHg (60-100); SAMPLE BLOOD; SAO2 92.9 % (95.0-100.0); THB 13.1 g/dL (11.5-17.4); pH(98.6) 7.27 (7.35-7.45)
[2019-11-02] MEDS: NS 1,000 ML IV SCH (17:17)
[2019-11-02 17:21] LABS: MODALITY VENTIMASK; O2HB 87.8 % (95.0-99.0); PCO2(98.6) 78 mmHg (35-45)
[2019-11-02] MEDS: ZYVOX 600 MG/D5W 600 MG/300 ML IVPB IV SCH (17:32)
[2019-11-02] MEDS: MAXIPIME 1 GM in NS 50 ML IV SCH (17:32)
[2019-11-02 18:08] LABS: URINE SOURCE CATH
[2019-11-02 18:12] LABS: BILIRUBIN URINE NEGATIVE (NEGATIVE); BLOOD URINE NEGATIVE (NEGATIVE); COLOR STRAW; GLUCOSE URINE NEGATIVE (NEGATIVE); KETONE URINE NEGATIVE (NEGATIVE); LEUKOCYTES URINE NEGATIVE (NEGATIVE); NITRITE URINE NEGATIVE (NEGATIVE); PROTEIN URINE NEGATIVE (NEGATIVE); SP GRAVITY URINE 1.008; TURBIDITY URINE CLEAR (CLEAR); UROBILINOGEN URINE NORMAL (NORMAL)
[2019-11-02 18:14] LABS: UR EPITHELIAL CELLS <10 /HPF (<10); URINE BACTERIA NEGATIVE /HPF; URINE RBC <10 /HPF (<10); URINE WBC <10 /HPF (<10)
[2019-11-02 18:25] LABS: ALLEN TEST NO; BE 6.4 mmoll (-3.0-3.0); BLOOD TYPE ARTERIAL; HCO3-(ACT) 29.8 mmoll (20.0-26.0); METHB 1.5 % (0.0-1.5); MODALITY BI PAP; O2(CT) 16.2 mL/dL (15.0-23.0); O2HB 93.8 % (95.0-99.0); PO2(98.6) 87 mmHg (60-100); SAMPLE BLOOD; SAO2 99.2 % (95.0-100.0); SRATE 10 BPM; THB 12.2 g/dL (11.5-17.4); pH(98.6) 7.32 (7.35-7.45)
[2019-11-02 18:26] LABS: PCO2(98.6) 67 mmHg (35-45)
[2019-11-02] MEDS: PULMICORT INH SCH (19:45)
--- NOTE | 2019-11-02 19:56 | HISTORY AND PHYSICAL ---
ADDENDUM: The patient is seen and examined by myself. Full note dictated and discussed with nurse practitioner. Patient presented to the hospital after a syncopal episode and became lightheaded. Does have a known history of congestive heart failure, hypertension, history of seizures, although notes that this was different than his typical seizure. He was noted to be acidotic with retaining CO2 of 79 on ABG with pH of 48, oxygen hemoglobin at 84, and carboxyhemoglobin at 5.8. Unfortunately, the patient continues to smoke despite multiple discussions in the past. The patient is currently on BiPAP. Does have a right lower lobe pneumonia. He was given Narcan and very quickly became agitated. He is much more awake. Still is requiring BiPAP due to his difficulty breathing. However, he was agitated and therefore was given a small amount of benzos to calm down. Thankfully, he improved. At this point, we are going to continue to follow. Further orders as needed. cc: Galileo Guadarrama MD
--- NOTE | 2019-11-02 21:58 | PULMONOLOGY CONSULTATION ---
DATE: 11/02/2019 REQUESTING PHYSICIAN: Dr. Garcia. REASON FOR CONSULTATION: Respiratory failure and COPD exacerbation. HISTORY OF PRESENT ILLNESS: Mr. Arce is a 59-year-old white male with severe COPD, ongoing tobacco use, who was last admitted to this hospital in mid September. The patient presented to the emergency room with near syncopal episode. Arterial blood gas revealed acute hypoxemic and acute hypercapnic respiratory failure with elevated carboxyhemoglobin level at 5.8. CT scan of the brain revealed no acute disease. The patient became combative and has been initiated on BiPAP. He did require a dose of Ativan and Geodon. He is now resting comfortably on BiPAP ventilation. Minor adjustments have been made by this practitioner. PAST MEDICAL HISTORY: 1. Severe COPD with ongoing tobacco use. 2. History of hepatitis C. Last quantitative RNA in 2015 was negative. 3. History of chronic pain syndrome with prior polysubstance abuse. 4. CHF listed in the chart, but not fully documented. 5. History of seizure disorder. SOCIAL HISTORY: Ongoing tobacco use as per above. Prior alcohol use, but he has been sober for 5 years according to his 2019 chart. REVIEW OF SYSTEMS: Cannot be obtained. PHYSICAL EXAMINATION: General: Reveals a thin, chronically ill-appearing male who is resting on BiPAP. He is synchronizing with the device without difficulty. The rate and pressures have been adjusted. Vital signs: Blood pressure 116/70, heart rate 77, respiratory rate 10, oxygen saturation 100%. HEENT: Pupils are equal. Oropharynx is not evaluated due to BiPAP placement. Neck: Supple. Chest: Reveals markedly diminished breath sounds bilaterally with expiratory wheeze. Cardiac: S1, S2. Abdomen: Soft. Extremities: Without edema. LABORATORIES: White blood count 8.63, hemoglobin 11.6, platelet count 171,000. Sodium 133, potassium 4.5, chloride 92, bicarbonate 33, BUN 13, creatinine 1.2. Chest x-ray reveals mild infiltrate at the right medial base. IMPRESSION: 59-year-old with: 1. Acute hypoxemic respiratory failure. 2. Acute hypercapnic respiratory failure. 3. Chronic hypoxemic and chronic hypercapnic respiratory failure. 4. Right lower lobe pneumonia. 5. Near syncopal episode. 6. Encephalopathy, likely related to acute illness and possible drug use. RECOMMENDATIONS: 1. Continue BiPAP support through the evening. He currently is saturating well and appears to be ventilating on current settings. We will repeat a blood gas in 1 hour to ensure he is not having decompensation. 2. Agree with current broad-spectrum antibiotics. 3. Continued limited fluids at this juncture. 4. Continue ICU monitoring. With pneumonia, he is at risk for decompensation. 5. Ongoing smoking cessation education if he clinically improves. cc: Yoan Navarrete MD
[2019-11-03] MEDS: DUONEB (A & A) INH SCH ×6 (03:26→23:49)
[2019-11-03] MEDS: MAXIPIME 1 GM in NS 50 ML IV SCH ×2 (04:19→17:30)
[2019-11-03] MEDS: NS 1,000 ML IV SCH ×3 (04:19→19:39)
[2019-11-03 04:59] LABS: ALLEN TEST YES; BE 4.9 mmoll (-3.0-3.0); BLOOD TYPE ARTERIAL; HCO3-(ACT) 28.6 mmoll (20.0-26.0); O2(CT) 19.2 mL/dL (15.0-23.0); PCO2(98.6) 50 mmHg (35-45); PO2(98.6) 67 mmHg (60-100); SAMPLE BLOOD; SAO2 97.6 % (95.0-100.0); THB 14.5 g/dL (11.5-17.4)
[2019-11-03 05:00] LABS: MODALITY BI PAP
[2019-11-03] MEDS: SOLU-MEDROL IV SCH ×3 (05:14→23:20)
[2019-11-03] MEDS: ZYVOX 600 MG/D5W 600 MG/300 ML IVPB IV SCH ×2 (05:14→17:30)
[2019-11-03 06:42] LABS: HEMATOCRIT 39.7 % (42.0-52.0); HEMOGLOBIN 12.8 g/dL (14.0-18.0); IMM GRAN# 0.02 X1000 (0.0-0.04); IMM GRAN% 0.6 % (0.0-0.5); LYMPH# 0.67 X1000 (1.2-3.4); MCH 31.4 PG (27-31); MCHC 32.2 g/dL (33-37); MCV 97.5 FL (81-99); MONO# 0.04 X1000 (0.11-0.59); MONO% 1.1 % (1.7-9.3); NEUT# 2.79 X1000 (1.4-6.5); NEUT% 79.3 % (42.2-75.2); PLT 184 X1000 (130-400); RBC 4.07 XMIL (4.7-6.1); RDW 12.1 % (11.5-14.5); WBC 3.52 X1000 (4.8-10.8)
[2019-11-03 07:22] LABS: AGAP 11; ALB/GLOB RATIO 1.7; ALBUMIN 3.7 g/dL (3.5-5.0); ALKALINE PHOSPHATASE 63 U/L (32-122); BUN 12 mg/dL (8-22); CALCIUM 8.5 mg/dL (8.8-10.2); CHLORIDE 97 mmol/L (98-107); COSMO 279; CREATININE 0.9 mg/dL (0.7-1.2); ESTIMATED GFR > 60; GLUCOSE 101 mg/dL (70-104); GOT 18 U/L (10-34); GPT 13 U/L (10-44); POTASSIUM 5.2 mmol/L (3.5-5.1); SODIUM 140 mmol/L (136-145); TCO2 32 mmol/L (25-35); TOTAL BILIRUBIN 0.39 mg/dL (0.20-1.00); TOTAL PROTEIN 5.9 g/dL (6.3-8.3)
--- NOTE | 2019-11-03 07:38 | Diag Imaging Result Doc PS360 ---
EXAM: CHEST-PORTABLE 11/03/2019 HISTORY: copd exacerbation TECHNIQUE: AP portable erect at 0543 COMMENT: There is COPD. There is interstitial opacity in both lung bases as well as platelike opacity in the left base. The ill-defined opacity has improved slightly since 11/02/2019. IMPRESSION: Slightly improved pulmonary edema versus pneumonia. Left lower lobe atelectasis. COPD. Electronically signed by Jensen Franklin 11/03/2019 7:36 AM
[2019-11-03] MEDS: PULMICORT INH SCH ×2 (08:16→19:33)
[2019-11-03] MEDS ORDERED: ROCEPHIN 1 GM in NS 50 ML IV SCH (09:00)
[2019-11-03] MEDS: LOVENOX SUBQ SCH (13:52)
[2019-11-03] MEDS ORDERED: DILUENT IV ONE (14:00)
[2019-11-03] MEDS ORDERED: GAMUNEX-C 10% IV ONE (14:00)
[2019-11-03] MEDS ORDERED: GAMUNEX C IV ONE (14:00)
--- NOTE | 2019-11-03 18:12 | PROGRESS NOTE ---
DATE: 11/03/2019 INTERVAL HISTORY: The patient was pretty agitated and confused last night, but much improved this morning. Now awake, alert, following commands, making sense. Still some fairly significant wheezing and dyspnea on minimal exertion, but oxygenation a little better. Blood cultures positive for gram-positive cocci. The patient afebrile. No tachycardia. REVIEW OF SYSTEMS: Twelve-point review of systems negative except as per interval history. LABS: WBC 3.5, hemoglobin 12.8, hematocrit 39.7, platelets 184,000. ABG with pH 7.4, pCO2 of 50, PO2 of 67 on BiPAP at that time. Sodium 140, potassium 5.2, BUN 12, creatinine 0.9, glucose 101. IMAGING: Chest x-ray with slightly improved pulmonary edema versus pneumonia, left lower lobe atelectasis, COPD changes. VITAL SIGNS: T-max 98.3 degrees, pulse 85, respirations 21, blood pressure 136/79, O2 saturation 95% on 40% FiO2. PHYSICAL EXAMINATION: General: No acute distress. Vital Signs: As above. HEENT: Normocephalic, atraumatic. Moist mucous membranes. No cervical adenopathy. Cardiovascular: Regular rate and rhythm. No murmurs noted. Pulmonary: Markedly decreased breath sounds throughout. Expiratory wheeze noted and faint bibasilar crackles. Abdomen: Soft, nontender, nondistended. Bowel sounds positive. Extremities: Peripheral pulses intact. No clubbing or cyanosis. Neurologic: Cranial nerves grossly intact. No focal deficits identified. Psychiatric: Normal mood and affect. Awake, alert, oriented to person, struggled with year and month a bit, but did eventually get it. ASSESSMENT AND PLAN: 1. Acute on likely chronic hypoxic and hypercapnic respiratory failure, chronic obstructive pulmonary disease exacerbation, likely pneumonia. The patient with multifactorial respiratory failure as above. Was on BiPAP overnight, but down to a Ventimask today. On most recent ABG, hypercapnia is markedly improved, likely approaching baseline with normal pH and CO2 of 50. Continuing DuoNebs and intravenous steroids. On antibiotics with Zyvox and cefepime, which we will continue for now. Both encephalopathy and respiratory status much improved, so we will try to transfer him to the floor. 2. Pneumonia, on antibiotics as above. 3. Chronic obstructive pulmonary disease exacerbation, on treatment as above. 4. Hyponatremia, improved from admission. Continue to monitor. 5. Hyperkalemia, only minimally high. We will just monitor for now. We will place on Lokelma if it gets worse. 6. Bacteremia. Blood cultures preliminarily positive for gram-positive cocci. On Zyvox as above, which should treat for possible methicillin-resistant Staphylococcus aureus, but suspect this will end up being a contamination given the patient's stability. If it does come back methicillin-resistant Staphylococcus aureus, we will need echocardiogram, but we will hold off until that speciates. 7. Chronic pain. Given the patient's improvement in mental status, we will go ahead and put him back on Dubberly although at a lower dose than at home. The patient with issues with taking too much of his home medications in the past. 8. Questionable history of seizure disorder. The patient reportedly with a history of seizure disorder, but I cannot find any actual documentation of a seizure. He is not on any seizure medications really, so I suspect that this is either an error or that he had a significant hypoxic event which precipitated a seizure without true underlying epilepsy.
[2019-11-03] MEDS: NORCO-7.5 PO PRN (19:38)
--- NOTE | 2019-11-03 21:34 | ECHO REPORT ---
ORDER DATE: 11/03/2019 INDICATION: CHF, COPD, hypertension, syncope. M-MODE MEASUREMENTS: Left ventricle end diastole: 4.5. Left ventricle end systole: 3.0. Posterior wall: 1.0. Interventricular septum: 1.0. Left atrium: 3.0. Aortic diameter: 3.4. SUMMARY OF 2-DIMENSIONAL IMAGIN. Left ventricular function is normal. Ejection fraction is estimated at 55% to 60%. The patient is somewhat tachycardic. 2. The right-sided chambers appear to be grossly normal. 3. The left atrium is not dilated. 4. The aortic valve looks grossly normal. Color flow mapping unremarkable. 5. The mitral valve appears to be grossly normal. Color flow mapping unremarkable. 6. Pulse wave Doppler of mitral inflow shows borderline reversal of the E/A ratio. The ratio is 0.8. 7. Tissue Doppler of septal and lateral mitral annulus is normal and averages 14 cm. There is no diastolic dysfunction. 8. The tricuspid valve is normal. The jet of tricuspid regurgitation is minimal, therefore I cannot calculate accurately a pulmonary pressure. 9. The pulmonic valve looks grossly normal. 10.There is no pericardial effusion, no mass, and no thrombus. Clinical correlation recommended. cc: Esa Chávez MD
--- NOTE | 2019-11-03 22:49 | PULMONOLOGY PROGRESS NOTE ---
DATE: 11/03/2019 SUBJECTIVE: The patient is awake, alert and conversant. He reports he feels significantly better. He is anxious to go home. He is off BiPAP. OBJECTIVE: Vital Signs: The patient has been afebrile for the last 24 hours. Blood pressure 158/97, heart rate 87, respiratory rate 20, oxygen saturation 98% on 2 L per nasal cannula. HEENT: Pupils are equal and reactive. Oropharynx appears clear. Neck: Supple. Chest: Reveals prolonged expiratory phase with faint wheezing. Cardiac: S1, S2. Abdomen: Soft. Extremities: Without edema. LABORATORY DATA: Immunoglobulin level is severely reduced at 382. White blood count 3.52, hemoglobin 12.8, platelet count 184,000. Arterial blood gas reveals a pH of 7.40, pCO2 of 50, PO2 of 67. IMAGING: Chest x-ray reveals plate-like opacity at the left base which has improved. IMPRESSION: A 59-year-old with: 1. Acute hypoxemic respiratory failure. 2. Acute hypercapnic respiratory failure. 3. Right lower lobe pneumonia. 4. Severe immunoglobulin deficiency. 5. Ongoing nicotine addiction/tobacco use. PLAN: 1. Cycle BiPAP at bedtime and p.r.n. 2. Continue antibiotics. 3. Discontinue IV fluids. 4. Immunoglobulin replacement. 5. Encourage smoking cessation. 6. Anticipate transfer to the floor. cc: Yoan Navarrete MD
[2019-11-04] MEDS: NORCO-7.5 PO PRN ×2 (01:34→08:03)
[2019-11-04] MEDS: DUONEB (A & A) INH SCH ×2 (04:20→18:15)
[2019-11-04 05:09] LABS: ALLEN TEST YES; BE 8.5 mmoll (-3.0-3.0); BLOOD TYPE ARTERIAL; HCO3-(ACT) 31.5 mmoll (20.0-26.0); METHB 1.1 % (0.0-1.5); O2(CT) 16.3 mL/dL (15.0-23.0); O2HB 94.1 % (95.0-99.0); PCO2(98.6) 50 mmHg (35-45); PO2(98.6) 68 mmHg (60-100); SAMPLE BLOOD; SAO2 96.7 % (95.0-100.0); THB 12.3 g/dL (11.5-17.4); pH(98.6) 7.44 (7.35-7.45)
[2019-11-04 05:10] LABS: MODALITY CANNULA
[2019-11-04 05:39] LABS: BASO# 0.01 X1000 (0.0-0.2); BASO% 0.1 % (0.0-0.8); HEMATOCRIT 36.4 % (42.0-52.0); HEMOGLOBIN 12.1 g/dL (14.0-18.0); IMM GRAN# 0.03 X1000 (0.0-0.04); IMM GRAN% 0.3 % (0.0-0.5); LYMPH# 0.65 X1000 (1.2-3.4); LYMPH% 7.4 % (20.5-51.1); MCH 31.5 PG (27-31); MCHC 33.2 g/dL (33-37); MCV 94.8 FL (81-99); MONO# 0.22 X1000 (0.11-0.59); MONO% 2.5 % (1.7-9.3); MPV 10.6 FL (7.4-10.4); NEUT# 7.88 X1000 (1.4-6.5); NEUT% 89.7 % (42.2-75.2); PLT 194 X1000 (130-400); RBC 3.84 XMIL (4.7-6.1); RDW 12.1 % (11.5-14.5); WBC 8.79 X1000 (4.8-10.8)
[2019-11-04] MEDS: ZYVOX 600 MG/D5W 600 MG/300 ML IVPB IV SCH (06:00)
[2019-11-04 06:01] LABS: AGAP 11; ALB/GLOB RATIO 1.3; ALBUMIN 3.7 g/dL (3.5-5.0); ALKALINE PHOSPHATASE 58 U/L (32-122); BUN 19 mg/dL (8-22); CALCIUM 8.3 mg/dL (8.8-10.2); CHLORIDE 96 mmol/L (98-107); COSMO 278; ESTIMATED GFR > 60; GLUCOSE 139 mg/dL (70-104); GOT 20 U/L (10-34); GPT 10 U/L (10-44); POTASSIUM 4.1 mmol/L (3.5-5.1); SODIUM 137 mmol/L (136-145); TCO2 30 mmol/L (25-35); TOTAL BILIRUBIN 0.34 mg/dL (0.20-1.00); TOTAL PROTEIN 6.5 g/dL (6.3-8.3)
[2019-11-04] MEDS: MAXIPIME 1 GM in NS 50 ML IV SCH (06:15)
[2019-11-04] MEDS: SOLU-MEDROL IV SCH (06:24)
[2019-11-04 06:45] LABS: LYMPHS 8 % (21-51); MONO 2 % (1-9); SEGS 90 % (42-75)
[2019-11-04 08:12] VITALS: BP 151/67
[2019-11-04] MEDS: PULMICORT INH SCH (18:14)
--- NOTE | 2019-11-06 07:32 | DISCHARGE SUMMARY ---
ADMISSION DATE: 11/02/2019 DISCHARGE DATE: 11/04/2019 CONSULTS: Pulmonology, Dr. Navarrete. PERTINENT STUDIES: Initial chest x-ray with severe COPD and right lower lobe pneumonia. CT head with no acute process. Echocardiogram with normal EF. No clear evidence of diastolic dysfunction. They were unable to calculate pulmonary pressure. No major valvular pathology. Initial ABG with pH 7.32, pCO2 67, PO2 87 on BiPAP with 40% oxygen. Last ABG with pH 7.4, pCO2 50, PO2 68 on 2 L by nasal cannula. DISCHARGE DIAGNOSES: 1. Acute on likely chronic hypoxic and hypercapnic respiratory failure. 2. Chronic obstructive pulmonary disease exacerbation. 3. Likely pneumonia. 4. Hyponatremia. 5. Hyperkalemia. 6. Chronic pain. 7. Noncompliance, patient left AMA. HOSPITAL COURSE: The patient admitted for another bout of COPD exacerbation and over-sedation. The patient has significant pulmonary issues and also occasionally takes too much of his home medications. On initial evaluation, he was found to have a COPD exacerbation, pneumonia, and significant CO2 retention with a pH of 7.3 and a pCO2 of 67. He was significantly encephalopathic initially, but this improved fairly rapidly with treating his underlying conditions and withholding of his usual sedating medications. He was treated with steroids, nebulizer treatments and antibiotics with Zyvox and cefepime. Initial blood culture was 1 of 2 positive for gram- positive cocci, but later finalized as coagulase-negative staph which was felt to be a contaminant. The acute portion of the patient's hypercapnia improved pretty rapidly then back to his baseline of around 50 pCO2, but he continued to require oxygen. However, despite that on the day of discharge, patient insisted on leaving the hospital. It was discussed that he was still requiring a fair amount of oxygen and that it was strongly advised for him to remain in the hospital to complete treatment. The patient expressed understanding and again insisted on leaving the hospital against medical advice. The patient appeared to be coherent at that point. He was awake, alert, fully oriented and expressed understanding of the seriousness of his condition. Therefore, his desire to leave against medical advice was facilitated. We did prescribe antibiotics and oral steroids in an attempt to try to keep him healthy but it was emphasized to the patient that this was not ideal and could result in his clinical deterioration and/or . DISCHARGE VITALS: Temperature 98.1 degrees, pulse 78, respirations 15, blood pressure 151/67, O2 saturation 96% on 3 L by nasal cannula. DISCHARGE DIET: Regular. DISCHARGE MEDICATIONS: 1. Albuterol nebulizers as needed. 2. Amitriptyline 10 mg p.o. at bedtime. 3. Gabapentin 300 mg p.o. as previously prescribed. 4. Premier as previously prescribed, but patient advised to exercise caution and not taking more than prescribed. 5. Doxycycline 100 mg p.o. b.i.d. 6. Extended prednisone taper over 16 days. FOLLOWUP AND PLAN: Patient left the hospital against medical advice. Did allow us to write him a couple of prescriptions before insisting on leaving. The patient advised to return to care if his respiratory status worsens. Greater than 30 minutes spent counseling patient and arranging discharge.
== END 2019-11-04 10:48 | disposition home or self-care (01) | DRG 189 ==
LOC: SUPCPDRO → P.ED 10:46 → SUATTDRO 14:06 → 2N 14:06 → ICU 14:57 → EDIPHOLD 14:57 → ICU 16:03 → 1N 11-04 00:14
PROVIDERS: ATTEND Internal Medicine

== ENCOUNTER 2019-11-29 20:54 | Inpatient (IN) ==
--- NOTE | 2019-11-29 21:42 | Diag Imaging Result Doc PS360 ---
EXAM: CHEST-PORTABLE 11/29/2019 HISTORY: stroke like symptoms TECHNIQUE: AP portable at 2132 COMMENT: The opacity in the left lower lobe which was present on 11/03/2019 is no longer present. Otherwise are has been no significant change. IMPRESSION: No evidence of acute disease. Electronically signed by Jensen Franklin 11/29/2019 9:40 PM
[2019-11-29 21:47] LABS: BASO# 0.02 X1000 (0.0-0.2); BASO% 0.4 % (0.0-0.8); EOS# 0.17 X1000 (0.0-0.7); HEMOGLOBIN 12.4 g/dL (14.0-18.0); IMM GRAN# 0.02 X1000 (0.0-0.04); IMM GRAN% 0.4 % (0.0-0.5); LYMPH# 1.48 X1000 (1.2-3.4); LYMPH% 26.4 % (20.5-51.1); MCH 31.1 PG (27-31); MCHC 31.8 g/dL (33-37); MCV 97.7 FL (81-99); MONO# 0.35 X1000 (0.11-0.59); MONO% 6.2 % (1.7-9.3); MPV 9.5 FL (7.4-10.4); NEUT# 3.57 X1000 (1.4-6.5); NEUT% 63.6 % (42.2-75.2); PLT 223 X1000 (130-400); RBC 3.99 XMIL (4.7-6.1); RDW 12.9 % (11.5-14.5); WBC 5.61 X1000 (4.8-10.8)
[2019-11-29 21:54] LABS: INR 0.9; PROTIME 12.2 Seconds (11.0-16.0)
[2019-11-29 21:55] LABS: PTT 26.9 Seconds (22.3-41.8)
[2019-11-29 22:01] LABS: CREATININE 1.3 mg/dL (0.7-1.2); POTASSIUM 5.1 mmol/L (3.5-5.1); TOTAL BILIRUBIN 0.17 mg/dL (0.20-1.00)
--- NOTE | 2019-11-29 22:03 | EKG Report ---
Test Performed on : 11/29/2019 9:01:03 PM Test Reason : ingestion, accidental Blood Pressure : / mmHG Vent. Rate : 108 BPM Atrial Rate : 108 BPM P-R Int : 190 ms QRS Dur : 082 ms QT Int : 322 ms P-R-T Axes : 072 087 078 degrees QTc Int : 431 ms Sinus tachycardia. Otherwise normal ECG When compared with ECG of 02-NOV-2019 11:19, (Unconfirmed) No significant change was found Unconfirmed Result
--- NOTE | 2019-11-29 22:04 | Diag Imaging Result Doc PS360 ---
EXAM: CT HEAD W/O CONTRAST 11/29/2019 HISTORY: stroke like symptoms TECHNIQUE: This exam was performed using automated exposure control, adjustment of mA or kV according to patient size, and/or use of iterative reconstruction technique. COMMENT: There is no evidence of mass effect, bleed, or abnormal extra-axial fluid collection. The calvarium is intact. The visualized paranasal sinuses are clear. Compared to 11/02/2019 there has been no significant change. IMPRESSION: No evidence of acute disease. If clinically indicated advise further evaluation with MRI. Electronically signed by Jensen Franklin 11/29/2019 10:01 PM
[2019-11-29 22:25] LABS: URINE SOURCE CATH
[2019-11-29 22:40] LABS: UR AMPHETAMINES QUAL NONE DETECTED (NONE DETECT); UR BARBITUATES QUAL NONE DETECTED (NONE DETECT); UR BENZODIAZEPIN QUAL NONE DETECTED (NONE DETECT); UR CANNABINOIDS QUAL NONE DETECTED (NONE DETECT); UR COCAINE QUAL NONE DETECTED (NONE DETECT); UR METHADONE QUAL NONE DETECTED (NONE DETECT); UR OPIATES QUAL NONE DETECTED (NONE DETECT); UR OXYCODONE QUAL PRESUMPTIVE POSITIVE (NONE DETECT); UR PCP QUAL NONE DETECTED (NONE DETECT)
[2019-11-29 22:42] LABS: BILIRUBIN URINE NEGATIVE (NEGATIVE); BLOOD URINE NEGATIVE (NEGATIVE); COLOR STRAW; GLUCOSE URINE NEGATIVE (NEGATIVE); KETONE URINE NEGATIVE (NEGATIVE); LEUKOCYTES URINE NEGATIVE (NEGATIVE); NITRITE URINE NEGATIVE (NEGATIVE); PH URINE 6.5; PROTEIN URINE NEGATIVE (NEGATIVE); SP GRAVITY URINE 1.012; TURBIDITY URINE CLEAR (CLEAR); UR EPITHELIAL CELLS <10 /HPF (<10); URINE BACTERIA NEGATIVE /HPF; URINE RBC <10 /HPF (<10); URINE WBC <10 /HPF (<10); UROBILINOGEN URINE NORMAL (NORMAL)
--- NOTE | 2019-11-29 22:45 | PROVIDER DOCUMENTATION ---
This chart was entered by Asia Serna Scribe, acting as scribe for Jaime Beckman MD. HPI-General Adult - General Chief Complaint: Ingestion,Accidental Stated Complaint: stroke like symptoms Time Seen by Provider: 11/29/19 21:00 Source: patient Unable to obtain history due to:: altered Allergies/Adverse Reactions: Patient Allergies Allergy/AdvReac Type Severity Reaction Status Date / Time codeine [Codeine] Allergy Intermediate RASH Verified 09/16/18 17:48 Penicillins Allergy Intermediate RASH Verified 09/16/18 17:48 ketorolac tromethamine * Allergy ABDOMINAL Verified 09/16/18 17:48 [From Toradol] PAIN meloxicam [From Mobic] Allergy NAUSEA/VOMI Verified 09/16/18 17:48 TING Home Medications: Home Medication List Medication Instructions Recorded Confirmed Last Taken Type Albuterol [Albuterol Neb] 2.5 mg INH Q4H PRN PRN 12/11/14 09/27/15 09/26/15 History Albuterol Sulfate [Proair Hfa] 8.5 gm IH PRN PRN 04/06/15 09/27/15 09/26/15 History Gabapentin 300 mg PO TID 04/06/15 09/27/15 09/26/15 History Ipratropium/Albuterol Sulfate 4 gm IH PRN PRN 04/06/15 09/27/15 09/26/15 History [Combivent Respimat 20-100 Mcg] Amitriptyline [Elavil] 10 mg PO HS 09/27/15 09/27/15 09/25/15 History D-Methorphan/P-Epd/Bpm [Bromfed Dm 2 tsp PO Q4H PRN PRN 09/27/15 09/27/15 09/26/15 History Liquid] Hydrocodone/Acetaminophen [Gueydan 10 mg PO 4XDAY PRN PRN 09/27/15 09/27/15 09/26/15 History 10-325 Tablet] Doxycycline 100 mg PO BID #14 tab 11/04/19 Unknown Rx Prednisone 40 mg PO DAILY #20 tab 11/04/19 Unknown Rx - History of Present Illness -Gen Adult Nature of Presenting Problems: pt is a 59 yr old male presenting via EMS after family found pt acting strangely and not responding to them appropriately. upon arrival EMS found pt to be awake, altered, not responding to EMS, pt was lying in floor acting as though he was eating bugs. pt was given Narcan and became responsive and began following commands. on exam pt alert to self, has confused, rambling, garbled conversation. pt fidgeting throughout exam. pt is a chronic pain pt, family reports he manages his own narcotics and keeps them locked away, family is unsure if he took his medications today or not. Onset/Duration: reports: unsure Review of Systems - Adult - REVIEW OF SYSTEMS - ADULT ROS:: unobtainable per condition (confused, garbled conversation) Constitutional: reports: no symptoms reported Eyes: reports: no symptoms reported Ears, Nose, Mouth & Throat: reports: no symptoms reported Cardiovascular: reports: no symptoms reported Respiratory: reports: no symptoms reported Gastrointestinal: reports: no symptoms reported Genitourinary: reports: no symptoms reported Musculoskeletal: reports: no symptoms reported Integumentary: reports: no symptoms reported Neurological: reports: no symptoms reported Psychiatric: reports: no symptoms reported Endocrine: reports: no symptoms reported Hematologic/Lymphatic: reports: no symptoms reported Allergic/Immunologic: reports: no symptoms reported All Other Systems: Reviewed and Negative Past History - Adult - PAST MEDICAL HISTORY-ADULT Review of Records: reports: Old Records Reviewed, Nursing Assessment Review, Medications Reviewed, Social history reviewed & non-contributory. Major Childhood Illnesses: reports: denies history Cardiovascular: reports: CHF Respiratory: reports: asthma, COPD Gastrointestinal: reports: hepatitis (Hep C) Obstetrical/Gynecological: reports: denies history Genitourinary: reports: denies history Musculoskeletal: reports: chronic pain Neurological: reports: Seizures/Epilepsy Psychiatric: reports: anxiety Endocrine/Immune: reports: denies history Other Conditions: reports: denies history - PRIOR SURGERIES/PROCEDURES Surgical/Procedure History: reports: cholecystectomy, other (Cyst on the tailbone ) - IMMUNIZATION STATUS Childhood Immunizations: See Nurse Assessment Flu Vaccine: See Nurse Assessment - FAMILY HISTORY Family History: reviewed, not pertinent - SOCIAL HISTORY Smoking: cigarettes Provider spent 3-5 mins advising pt. on dangers of tobacco.: Discussed manners to quit use, and f/u contacts for add'l counseling. Substance Use: denies Living Situation: family Physical Exam-General - PHYSICAL EXAM-ADULT Initial Vital Signs Reviewed: Yes - CONSTITUTIONAL General Appearance: alert, no apparent distress, slow to respond, other (fidgeting, garbled converstion) - EYES Eyes: PERRL/EOMI - HEAD, EARS, NOSE, MOUTH & THROAT HENMT: normocephalic/atraumatic, moist mucous membranes - NECK Neck: non-tender, full range of motion, supple, normal inspection - RESPIRATORY Respiratory: lungs clear, normal breath sounds - CARDIOVASCULAR Cardiovascular: normal peripheral pulses, tachycardia - GASTROINTESTINAL (ABDOMEN) Abdominal Exam: normal bowel sounds, non tender, soft - LYMPHATIC Lymphatic: no adenopathy - MUSCULOSKELETAL Back Exam: normal inspection Extremity: normal range of motion, non-tender, normal inspection - SKIN Integumentary: normal color, normal turgor, warm/dry - NEUROLOGIC Neurologic: grossly normal, no motor/sensory deficits, other (garbled speech) - PSYCHIATRIC Psych/Mental Status: disheveled, other (oriented to person, fidgeting, confused conversation. Oriented to person but not to place and time). negative: oriented x 3 Progress - PLAN OF CARE/RESULTS Progress/Plan/Lab Results: Vital Signs - 8 hr 11/29/19 21:17 Temperature 98.4 F Pulse Rate 104 H Respiratory Rate 14 Blood Pressure 158/107 O2 Sat by Pulse Oximetry 97 Orders Category Date Time Status EKG [EKG] Stat Ther 11/29/19 21:01 Ordered Result Diagrams: 11/29/19 21:35 11/29/19 21:35 - REASSESSMENT Reassessment #1 Time Reassessed: 22:54 Status: unchanged (Patient still confused. Discussed admission with Dr Whipple. He wants ABG as pt had C02 retension on last admission. UDS is positive for oxycodon. Patient gave a prior h/o of the use of norco for back pain and also use of xanax) - EKG 1 Time of EKG reading by physician:: 21:01 EKG Read and Signed by:: Viry Elizabeth EKG Interpretation (*Must complete 3 of following elements*): Normal Rate: 108 Rhythm: sinus tach [place]: normal QRS: normal CT Interval: normal ST Wave: normal - XRAY 1 XRAY Study: Chest Impression: Normal (Signed EXAM: CHEST-PORTABLE 11/29/2019 HISTORY: stroke like symptoms TECHNIQUE: AP portable at 2131 COMMENT: The opacity in the left lower lobe which was present on 11/03/2019 is no longer present. Otherwise are has been no significant change. IMPRESSION: No evidence of acute disease. Electronically signed by Jensen Franklin 11/29/2019 9:40 PM 11/29/192139 Interpreting Physician: Jensen Franklin MD Dictated Date/Time: 11/29/192138 cc: Jaime Beckman MD; Kehinde Hidalgo MD) - CT/MRI 1 CT Study: Head ( EXAM: CT HEAD W/O CONTRAST 11/29/2019 HISTORY: stroke like symptoms TECHNIQUE: This exam was performed using automated exposure control, adjustment of mA or kV according to patient size, and/or use of iterative reconstruction technique. COMMENT: There is no evidence of mass effect, bleed, or abnormal extra-axial fluid collection. The calvarium is intact. The visualized paranasal sinuses are clear. Compared to 11/02/2019 there has been no significant change. IMPRESSION: No evidence of acute disease. If clinically indicated advise further evaluation with MRI. Electronically signed by Jensen Franklin 11/29/2019 10:01 PM) - CONSULTS/PCP/HOSPITALIST Notification #1 *Consult/PCP/Hospitalist*: Dr Whipple Time Discussed: 23:00 Consult Disposition: Admit (Accepts admission but wants ABG) Departure - Departure Date of Disposition Decision: 11/29/19 Time of Disposition Decision: 23:10 DIAGNOSIS: Altered mental state Qualifiers: Altered mental status type: unspecified Qualified Code(s): R41.82 - Altered m ental status, unspecified Disposition: ADMITTED INPATIENT 09 Certified Medical Emergency: Emergent Condition: Stable Referrals and Follow-Ups: Kehinde Hidalgo MD [Primary Care Provider] - - Critical Care Note This patient required my direct & personal management of CC.: No Attestation - Physician/ JITENDRA Attestation Patient care was provided by Advanced Practice Provider:: No The physician spent face to face time with patient:: Yes Advanced Practice Provider documentation review:: Supervising physician onsite and consulted in the evaluation and care of this patient. The physician did have a face to face encounter with the patient. This chart was documented by the indicated scribe, (Asia Serna, [employer]) and accurately reflects the services I performed and decisions made by me, Jaime Beckman MD, as attested by the provider's signature.
[2019-11-29 23:17] LABS: ACETAMINOPHEN 9.1 ug/mL (10-30); SALICYLATES < 3.00 mg/dL (3-10)
[2019-11-29] MEDS ORDERED: NARCAN ONE (23:18)
[2019-11-29] MEDS ORDERED: M.V.I.-12 10 ML, FOLIC ACID 1 MG, MAGNESIUM SULFATE 1 GM, THIAMINE 100 MG in NS 1,000 ML IV ONE (23:44)
[2019-11-29] MEDS ORDERED: NARCAN IV ONE (23:57)
--- NOTE | 2019-11-30 02:03 | HISTORY AND PHYSICAL ---
PRIMARY CARE PHYSICIAN: Patient of Kehinde Hidalgo. REASON FOR ADMISSION: Acute confusion today. HISTORY OF PRESENT ILLNESS: Mr. Stephane Arce is a 59-year-old man who appears older than stated age. He has a history of COPD exacerbations all usually accompanied by oversedation from illicit use of opioids, benzodiazepines, and tricyclic agents. Today, his family called EMS because he was having visual hallucinations, picking up bugs from the floor and putting them in his mouth. He was very confused when EMS got there and for some reason were concerned about him being a little bit groggy and they gave him 2 mg of Narcan. On arrival to the ER, oddly enough his sensorium improved. He was oriented to person, place, and even time. By the time I got there in less than an hour, he was in a stuporous state and had to shake him out of it and he was able to tell me his name and was able to tell me was at [facility], but other than that he was very confused. He still displayed some visual hallucinations by telling me that I had an IV tubing around my neck. He denies any pain. He will follow all basic commands, but that is the extent of our conversation. He would then go off on a tangent mumbling something incoherent, gibberish for most part. Unfortunately, no family members at bedside to furnish me with more information. REVIEW OF SYSTEMS: Could not be obtained for obvious reasons. The patient says he has no belly pain. He is not short of breath and that is the extent of my review of systems. ALLERGIES: He is allergic to codeine, penicillin, Toradol and other NSAIDs. MEDICATIONS: His home medications have not been reconciled. He was recently discharged, however, just on the 02 of November on DuoNeb, steroids, and doxycycline. SURGICAL HISTORY: Per his old records he has had cholecystectomy. PAST MEDICAL HISTORY: COPD, has hepatitis C, and epilepsy, and anxiety and chronic pain. FAMILY HISTORY: Could not be obtained. SOCIAL HISTORY: It is believed he still smokes. LABORATORY WORK: White count 5000, hemoglobin and hematocrit 12 and 39, platelets 223,000 with normal differential. BUN is 18, creatinine 1.3. Troponin is 22. Salicylates are undetected. Oxycodone positive. Acetaminophen 9.1. PT, PTT are normal. Urinalysis is clean. CT head, no evidence of acute disease. PHYSICAL EXAMINATION: GENERAL: A middle-aged man who appears older than stated age. VITAL SIGNS: His blood pressure is 158/107, heart rate is 104, respiratory rate 14, temperature is 98.4 degrees. He is 97% on room air. GENERAL: He is alert and oriented to person and place. HEENT: Head is normocephalic and atraumatic. Eyes, pupils are reactive to light. No nystagmus. EOMI. No facial asymmetry. Cranial nerves 2-12 are grossly intact. No focal weakness appreciated or focal motor deficits noted. NECK: Supple. No JVD or carotid bruit. No thyromegaly. Oropharyngeal exam shows no exudates, but his mouth is slightly dry. No central cyanosis noted. CHEST: Clear when auscultated with good air entry in both lung guerrero. CARDIOVASCULAR: First and second heart sounds heard. No gallops, murmurs, rubs. Rhythm is regular. ABDOMEN: Full, soft, nontender. No organomegaly. Bowel sounds normal. EXTREMITIES: There is good distal pulse volumes which are symmetrical, regular, full. No edema, clubbing or peripheral cyanosis. NEUROLOGICAL: See above. Patient has fine tremors of outstretched hands. CLIVE: exam is grossly normal. SKIN: Intact. No breakdown, lesion, erythema. ASSESSMENT: 1. Probable toxic encephalopathy from illicit drug use/polysubstance abuse. Cannot rule out metabolic encephalopathy from hypercapnia. Patient has refused us taking a blood stick. Other differentials that need to be entertained are the possibility of a focal epilepsy with no loss of consciousness versus i.e. a nonconvulsive status epilepticus. The latter seems unlikely though because oddly enough this patient responds very appropriately to doses of Narcan. Even though patient does not appear to be very drowsy or groggy as one would expect, his sensorium and his cognition improves for a while on Narcan. We will give him p.r.n. dose of Narcan and if patient improves with this we will continue this treatment. However, if patient becomes agitated there is IV Ativan on board for that and if the patient develops any seizure-like activity. We will consult Neurology to see the patient. I would feel it will be best served if he can get at least a blood gas to see if this confusion is not fueled by hypercapnia from illicit use of sedative medications. 2. Chronic obstructive pulmonary disease, currently stable. We will continue with nebulizer treatments as needed. 3. Hepatitis C. Currently stable. 4. Epilepsy. We will await home medication list and resume medications if not contraindicated in this setting. EEG may also be beneficial in this case if patient's symptoms continue to wax and wane. cc: Rashard Whipple MD [facility]
[2019-11-30 02:16] LABS: ALLEN TEST YES; BE 2.7 mmoll (-3.0-3.0); BLOOD TYPE ARTERIAL; O2(CT) 16.6 mL/dL (15.0-23.0); O2HB 96.3 % (95.0-99.0); PO2(98.6) 90 mmHg (60-100); SAMPLE BLOOD; SAO2 99.1 % (95.0-100.0); THB 12.2 g/dL (11.5-17.4); pH(98.6) 7.35 (7.35-7.45)
[2019-11-30 02:17] LABS: MODALITY CANNULA
[2019-11-30 02:19] LABS: PCO2(98.6) 53 mmHg (35-45)
[2019-11-30] MEDS ORDERED: NARCAN IV PRN (02:22)
[2019-11-30] MEDS ORDERED: ZOFRAN IV PRN (02:22)
[2019-11-30] MEDS ORDERED: TYLENOL PO PRN (02:22)
[2019-11-30] MEDS ORDERED: ATIVAN IV PRN (02:22)
[2019-11-30] MEDS: LOVENOX SUBQ SCH (02:41)
[2019-11-30] MEDS: NS 1,000 ML IV SCH ×2 (02:42→09:38)
[2019-11-30 10:34] LABS: BASO# 0.02 X1000 (0.0-0.2); BASO% 0.4 % (0.0-0.8); EOS# 0.28 X1000 (0.0-0.7); EOS% 5.3 % (0.0-10.0); HEMATOCRIT 39.9 % (42.0-52.0); HEMOGLOBIN 12.5 g/dL (14.0-18.0); LYMPH% 43.6 % (20.5-51.1); MCH 30.9 PG (27-31); MCHC 31.3 g/dL (33-37); MCV 98.5 FL (81-99); MONO# 0.36 X1000 (0.11-0.59); MONO% 6.8 % (1.7-9.3); MPV 9.5 FL (7.4-10.4); NEUT# 2.31 X1000 (1.4-6.5); NEUT% 43.9 % (42.2-75.2); PLT 234 X1000 (130-400); RBC 4.05 XMIL (4.7-6.1); RDW 13.1 % (11.5-14.5); WBC 5.27 X1000 (4.8-10.8)
[2019-11-30 10:47] LABS: AGAP 8; ALB/GLOB RATIO 1.9; ALBUMIN 3.8 g/dL (3.5-5.0); ALKALINE PHOSPHATASE 51 U/L (32-122); BUN 13 mg/dL (8-22); CALCIUM 8.3 mg/dL (8.8-10.2); CHLORIDE 108 mmol/L (98-107); COSMO 288; CREATININE 1.1 mg/dL (0.7-1.2); ESTIMATED GFR > 60; GLUCOSE 79 mg/dL (70-104); GOT 12 U/L (10-34); GPT 8 U/L (10-44); MAGNESIUM 2.1 mg/dL (1.5-2.7); POTASSIUM 4.6 mmol/L (3.5-5.1); SODIUM 145 mmol/L (136-145); TCO2 29 mmol/L (25-35); TOTAL BILIRUBIN 0.36 mg/dL (0.20-1.00); TOTAL PROTEIN 5.8 g/dL (6.3-8.3)
[2019-11-30] MEDS ORDERED: ALBUTEROL NEB INH PRN (11:41)
[2019-11-30] MEDS: NORCO-10 PO PRN ×2 (12:55→21:29)
[2019-11-30] MEDS ORDERED: COREG PO ONE (13:14)
[2019-11-30] MEDS: NEURONTIN PO SCH ×2 (13:50→21:29)
--- NOTE | 2019-11-30 14:31 | PROGRESS NOTE ---
DATE: 11/30/2019 SUBJECTIVE: The patient is sitting up on the stretcher. He states that he feels better. He states that he does not really remember what led him to be sent to the hospital, but he is alert and oriented x4 at this time. OBJECTIVE: Vital Signs: Temperature 97.9 degrees, blood pressure 145/96, heart rate 86, respirations 19, O2 saturation is 97% on 2 L nasal cannula. General: This is a chronically ill- appearing, elderly male, lying on the stretcher in no acute distress. Heart: S1, S2 normal. Regular rate and rhythm. Lungs: Equal air entry bilaterally. No wheezing. No rales. No rhonchi. Abdomen: Positive bowel sounds. Soft, nontender, nondistended. Extremities: No edema, no cyanosis. Neurologic: The patient is alert and oriented x4. No focal neurologic deficits noted. Cranial nerves II through XII are intact. IMAGING AND LABORATORY DATA: White blood cell count 5.2, hemoglobin 12, hematocrit 39, platelets 234,000. Sodium 145, potassium 4.6, chloride 108, CO2 of 29, BUN 13, creatinine 1.1, glucose 79. Magnesium 2. Head CT: No acute disease. ASSESSMENT AND PLAN: 1. Metabolic encephalopathy. This appears to have resolved. The patient appears to be back to his baseline. The head CT was noted to be unremarkable. 2. Chronic obstructive pulmonary disease. The patient is not in exacerbation. Will continue with bronchodilator therapy and supplemental oxygen. 3. Chronic hypoxemic respiratory failure. The patient states that he is on home oxygen at 2 liters. Will continue on this while hospitalized. 4. Tobacco dependence. The patient has been counseled about smoking cessation. 5. Hypertension. The patient is on Coreg. 6. Chronic pain. Aware. The patient is on as needed [place] and Neurontin. 7. Deep vein thrombosis prophylaxis. Continue on Lovenox. 8. Disposition. Physical Therapy has been consulted. Will start discharge planning. cc: Janeth Garcia MD
[2019-11-30] MEDS ORDERED: SODIUM PHOSPHATE 20 MMOL in NS 250 ML IV ONE (14:50)
[2019-11-30] MEDS: DUONEB (A & A) INH SCH ×4 (15:47→23:07)
[2019-11-30] MEDS ORDERED: ELAVIL PO SCH (21:00)
[2019-11-30] MEDS: COREG PO SCH (21:29)
[2019-12-01] MEDS: DUONEB (A & A) INH SCH ×4 (03:29→15:07)
[2019-12-01] MEDS: LOVENOX SUBQ SCH ×2 (04:41→05:04)
[2019-12-01] MEDS: NORCO-10 PO PRN ×2 (04:41→13:39)
[2019-12-01 08:54] LABS: HEMOGLOBIN 12.3 g/dL (14.0-18.0); MCH 31.9 PG (27-31); MCHC 32.4 g/dL (33-37); MCV 98.7 FL (81-99); MPV 9.7 FL (7.4-10.4); RBC 3.85 XMIL (4.7-6.1); RDW 12.9 % (11.5-14.5); WBC 4.78 X1000 (4.8-10.8)
[2019-12-01] MEDS: NEURONTIN PO SCH ×2 (08:59→13:39)
[2019-12-01] MEDS: COREG PO SCH (09:00)
[2019-12-01 09:04] LABS: AGAP 9; BUN 11 mg/dL (8-22); CALCIUM 8.2 mg/dL (8.8-10.2); CHLORIDE 104 mmol/L (98-107); COSMO 281; CREATININE 1.1 mg/dL (0.7-1.2); ESTIMATED GFR > 60; GLUCOSE 76 mg/dL (70-104); POTASSIUM 4.3 mmol/L (3.5-5.1); SODIUM 142 mmol/L (136-145); TCO2 29 mmol/L (25-35)
[2019-12-01 15:45] VITALS: BP 143/78
[2019-12-01] MEDS ORDERED: PERCOCET-10 PO PRN (16:04)
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
--- NOTE | 2019-12-02 19:52 | DISCHARGE SUMMARY ---
ADMISSION DATE: 11/30/2019 DISCHARGE DATE: 12/01/2019 DISCHARGE DISPOSITION: Home. DISCHARGE CONDITION: Hemodynamically stable. He is alert oriented x3. DISCHARGE DIAGNOSIS: 1. Acute encephalopathy. 2. Acute on chronic hypercapnic respiratory failure. 3. Altered mental status and metabolic encephalopathy due to use of multiple sedative hypnotic medications. 4. Active tobacco abuse. 5. Chronic pain disorder. OTHER DIAGNOSES: 1. History of chronic hypoxic hypercapnic respiratory failure. 2. History of obstructive sleep apnea, noncompliant with CPAP. 3. History of chronic pain. 4. Essential hypertension. DISCHARGE MEDICATIONS: The medications were not properly reconciled during this hospital admission, and I discussed with the patient and his partner at bedside about following up with outpatient provider about his chronic pain medication regimen. He told me that at home he has been on Percocet 10 mg, doxepin, cyclobenzaprine, Lyrica, and I discussed with him that he should stop taking multiple hypnotic sedative medication after having a discussion with the pain doctor. I told him that he should stop taking Lyrica for pain, decrease the frequency of Percocet, stop taking cyclobenzaprine and slowly taper down doxepin as per discussion with his pain doctor. I also informed him that he should have outpatient pulmonology follow-up since his home CPAP machine has not been working properly. VITALS: At time of discharge temperature 99.4 degrees, pulse 80 respiratory blood pressure 143/78 saturating 96% on 2 L nasal cannula. PHYSICAL EXAMINATION: He is not in acute distress. Oral cavity is moist. Air entry bilaterally equal. No wheeze, rhonchi, or crackles. Cardiovascular: S1, S2 normal. No murmur, gallop, rub. Abdomen: Soft nontender. Extremity: No lower edema. NEUROLOGICAL: He is alert oriented x3. LABS: At the time of discharge WBC 4.7, hemoglobin 12.3, platelet 222,000. A pH 7.35, pCO2 53, PO2 of 19 on 2 L nasal cannula. BUN 11, creatinine 1.1. Urine toxicology was positive for oxycodone. No microbiology. IMAGIN. During hospital admission chest x-ray on November 29 did not have any evidence of acute disease. 2. Head CT on presentation did not have any evidence of acute disease. 3. Electrocardiogram on presentation had sinus tachycardia. HOSPITAL COURSE SUMMARY: Mr. Arce is a 59-year-old man who presented on 11/29/2019 with chief complaints of confusion, visual hallucination. According to the patient's , the patient was picking up bugs from the floor and putting them in his mouth. When the EMS arrived, he was found to be a little drowsy and 2 mg of Narcan was given and by the time he presented to the emergency room, he was alert and oriented x3. However, he started becoming confused again so he was admitted for further management. His presentation ABG had pH of 7.35 and pCO2 of 53. It was thought that his acute encephalopathy was likely related to use of multiple sedative hypnotic medications. The patient informed me that he was taking cyclobenzaprine, Percocet, Lyrica, doxepin at home for his chronic back pain, and his pain doctor was prescribing him. It was thought that those medications were contributing to his acute confusion on presentation. He also has a known diagnosis of obstructive sleep apnea and he does not use CPAP. He also has known history of chronic obstructive pulmonary disease and continues to have active tobacco abuse, which all in combination had contributed to acute hypercapnic on chronic hypercapnic respiratory failure and his hypercapnia was contributing to his confusion. All of his home medications were held, after which his mental status improved. He was discharged home and was advised to have outpatient followup with his pain doctor. He was also advised to stop taking his cyclobenzaprine, Lyrica for pain. He was advised to decrease the frequency of Percocet and taper down doxepin under guidance of his pain and he agreed. Twenty-five minutes were spent in discharging this patient and I had an extensive counseling about his health condition and his multiple respiratory failure. I also counseled him about the risk of life-threatening respiratory depression with him and his partner at bedside and they voiced understanding. cc: Boni Santiago MD
== END 2019-12-01 18:39 | disposition home or self-care (01) | DRG 917 ==
LOC: SUPCPDRO → ED 20:54 → EDIPHOLD 11-30 04:36 → SUATTDRO 11-30 04:36 → 3N 11-30 16:04
PROVIDERS: ATTEND Internal Medicine